=== PATIENT | male | born 1990 | race Caucasian/White ===

== ENCOUNTER 2016-09-15 00:12 | Emergency (ER) | payer MEDICARE, MEDICAID ==
[2016-09-15] MEDS ORDERED: Ibuprofen TAB* 400 MG PO ONE (00:52)
[2016-09-15] MEDS ORDERED: Tetan/Diph/Pertus SYR(Tdap)* 0.5 ML SYR(BOOSTRIX) use SYR IM ONE (01:04)
--- NOTE | 2016-09-15 01:08 | ED ---
Upper Extremity Pain - HPI Summary HPI Summary: Patient presents with right hand pain after punching a wall in a bathroom. He has a small cut to his right middle finger, and is able to move all digits of the hand. He is not sure if his tetanus is up to date. He denies N/T. He has mild swelling and bruising. He is right handed. - History of Current Complaint Chief Complaint: EDExtremityUpper Stated Complaint: RT HAND LAC Time Seen by Provider: 09/15/16 00:22 Hx Obtained From: Patient Mechanism Of Injury: Direct Blow Onset/Duration: Started Hours Ago Timing: Constant Severity Initially: Severe Severity Currently: Severe Pain Location: Hand Character: Sharp, Aching, Stiffness Aggravating Factor(s): Movement Alleviating Factor(s): Nothing Associated Signs & Symptoms: Positive: Swelling Related History: Dominant Hand Right - Allergies/Home Medications Allergies/Adverse Reactions: Allergies Allergy/AdvReac Type Severity Reaction Status Date / Time No Known Allergies Allergy Verified 09/15/16 00:21 PMH/Surg Hx/FS Hx/Imm Hx Endocrine/Hematology History: Denies: Hx Diabetes Cardiovascular History: Denies: Hx Hypertension, Hx Pacemaker/ICD GI History: Denies: Hx Cirrhosis History: Denies: Hx Renal Disease Sensory History: Denies: Hx Hearing Aid Psychiatric History: Reports: Hx Inpatient Treatment - 2003 [facility] [place] [facility], Hx of Violent Episodes Against Others - 2003, Hx Substance Abuse - iv opiates Denies: Hx Panic Disorder - Surgical History Surgery Procedure, Year, and Place: one wisdom tooth removed Hx Anesthesia Reactions: No - Immunization History Date of Tetanus Vaccine: unk Infectious Disease History: Yes Infectious Disease History: Reports: Hx Hepatitis - HEP C Denies: History Other Infectious Disease, Traveled Outside the [place] in Last 30 Days - Family History Known Family History: Positive: None - Social History Occupation: Unemployed Lives: With Family Alcohol Use: None Substance Use Type: Reports: Prescribed Substance Use Comment - Amount & Last Used: last use was Saturday07/23/15, hydrocodone and vicodin, snorts and shoots Smoking Status (MU): Current Every Day Smoker Type: Cigarettes Amount Used/How Often: 1-2ppd Length of Time of Smoking/Using Tobacco: 13yrs Have You Smoked in the Last Year: Yes Cessation Counseling: Patient Advised to Stop Review of Systems Positive: Myalgia, Decreased ROM, Edema Negative: Paresthesia, Numbness All Other Systems Reviewed And Are Negative: Yes Physical Exam Triage Information Reviewed: Yes Vital Signs On Initial Exam: Initial Vitals Temp Pulse Resp BP Pulse Ox 99.1 F 122 20 158/83 98 09/15/16 00:15 09/15/16 00:15 09/15/16 00:15 09/15/16 00:15 09/15/16 00:15 Vital Signs Reviewed: Yes Appearance: Positive: Well-Appearing, Well-Nourished, Pain Distress Skin: Positive: Warm, Skin Color Reflects Adequate Perfusion, Dry, Soft Head/Face: Positive: Normal Head/Face Inspection Eyes: Positive: EOMI, BOUBACAR, Conjunctiva Clear ENT: Positive: Hearing grossly normal Respiratory/Lung Sounds: Positive: Breath Sounds Present Cardiovascular: Positive: RRR Musculoskeletal: Positive: Limited @ - Able to form a loose fist with movement of all digits, but with pain, Pain @, Edema Right Neurological: Positive: Sensory/Motor Intact, Alert, Oriented to Person Place, Time, NV Bundle Intact Distally Psychiatric: Positive: Affect/Mood Appropriate AVPU Assessment: Alert - Meño Coma Scale Coma Scale Total: 15 Procedures - Splinting Location: right forth digit Pre-Made Type: metal - metal foam splint Splint: volar Pre-Proc Neuro Vasc Exam: normal Post-Proc Neuro Vasc Exam: normal - Laceration/Wound Repair 1 Location: upper extremity - right 3rd digit dorsum of PIP Description: Linear Anesthesia: Local, 2.0%, Lido Length, Depth and Shape: 1.5 cm long, 3mm wide, 3mm deep Betadine Prep?: No Irrigated w/ Saline (ccs): 200 Laceration/Wound Explored: clean Closure: Single Layer Debridement: minimal Suture Type: Nylon - 4.0 Number of Sutures: 5 Layer Closure?: No Sterile Dressing Applied?: Yes Diagnostics - Vital Signs Vital Signs Temp Pulse Resp BP Pulse Ox 09/15/16 00:15 99.1 F 122 20 158/83 98 - Laboratory Lab Statement: Any lab studies that have been ordered have been reviewed, and results considered in the medical decision making process. - Radiology No standard instances Xray Interpretation: Positive (See Comments) Radiology Interpretation Completed By: ED Physician - right 4th digit proximal phalanx fracture Course/Dx - Diagnoses Differential Diagnosis/HQI/PQRI: Positive: Arthritis, Bursitis, Contusion, Fracture (Closed), Hematoma, Laceration, Strain, Sprain Provider Diagnoses: Finger fracture, right, Laceration of right middle finger Discharge - Discharge Plan Condition: Stable Disposition: HOME Patient Education Materials: Finger Fracture (ED), Finger Laceration (ED), Tetanus (ED) Referrals: Lloyd Horn MD [Medical Doctor] - Lionel Barcenas MD [Primary Care Provider] - Additional Instructions: Keep your dressing clean, dry and in place for the next 24 hours. You may then remove and clean. Pat dry and cover with a clean, dry band-aid if you are going to be in a "dirty" environment, otherwise it can remain open to air. Do not soak the wound in any body of water until the sutures are removed. Elevate the hand above your heart and use Ibuprofen 600mg three times daily with meals for the next 5-7 days to reduce pain and swelling. Keep the splint in place at all times. Follow-up with your primary care provider or return to the emergency department in 10-12 days for suture removal. Call Dr. Horn with orthopedics next week for an appointment for evaluation and fracture care. Return to the emergency department sooner if your symptoms worsen.
[2016-09-15 02:36] VITALS: BP 138/82
--- NOTE | 2016-09-15 07:42 | RAD ---
HISTORY: Trauma, right hand pain COMPARISONS: None VIEWS: 4, Frontal, lateral, and oblique views of the right hand FINDINGS: BONE DENSITY: Normal. BONES: There is a minimally displaced fracture of the base of the middle phalanx of the fourth digit with articular extension to the PIP joint. JOINTS: There is no arthropathy. ALIGNMENT: There is no dislocation. SOFT TISSUES: Unremarkable. OTHER FINDINGS: None. IMPRESSION: FRACTURE OF THE BASE OF THE MIDDLE PHALANX OF THE FOURTH DIGIT WITH ARTICULAR EXTENSION
== END 2016-09-15 02:35 | disposition home or self-care (01) ==
LOC: ED 00:12
DX: S62.602B Fracture of unspecified phalanx of right middle finger, initial encounter for open fracture (principal); S61.212A Laceration without foreign body of right middle finger without damage to nail, initial encounter; M79.641 Pain in right hand; W22.01XA Walked into wall, initial encounter; Y93.9 Activity, unspecified; Y92.9 Unspecified place or not applicable; F17.210 Nicotine dependence, cigarettes, uncomplicated
CPT/HCPCS: 90471; 90715; 99282; A9270-GY

== ENCOUNTER 2016-10-01 06:35 | Day surgery (SDC) | payer MEDICARE, MEDICAID ==
--- NOTE | 2016-09-27 08:40 | HP ---
PREOPERATIVE HISTORY AND PHYSICAL: DATE OF ADMISSION/SURGERY: 10/01/16 ATTENDING PHYSICIAN: Dr. Garcia (DICTATED BY KOLBY DAVILA) PROCEDURE: Right ring finger open reduction and internal fixation, proximal interphalangeal joint fracture dislocation, possible tiny-hamate reconstruction. CHIEF COMPLAINT: Right hand pain. HISTORY OF PRESENT ILLNESS: Chandu is a 25-year-old male who presented to the clinic with right hand pain after punching a wall on 09/14/16. The patient was seen in the ER for a wound on his long finger and stitches were placed. He recently reports that a purulent discharge has been coming out of the suture. X - rays were performed in the ER and revealed a displaced fracture of the middle phalanx of the right ring finger. He reports pain in the ring finger that he describes as an ache. He rates it as a 2/10 and it is worse with writing and use of the hand. He also reports limited range of motion. He is taking ibuprofen for pain. He was given a splint in the ER that he has been wearing on his index finger. He has a history of breaking his hand before. He reports purulent discharge from his sutures. He is currently on amoxicillin every day for a tooth abscess. He denies numbness, tingling, fever, chills. PAST MEDICAL HISTORY: Hypertension, HEPATITIS C, drug addiction, and alcoholism. PAST SURGICAL HISTORY: He denies previous surgeries. MEDICATIONS: 1. Gabapentin 600 mg one by mouth 3 times a day. 2. Amoxicillin 500 mg one tablet by mouth daily. ALLERGIES: No known drug allergies. FAMILY HISTORY: Positive for diabetes in maternal grandfather, heart disease and high blood pressure in maternal grandfather. Positive for brain cancer in his sister. SOCIAL HISTORY: He lives alone. He is unemployed. He is a current heavy smoker, smokes 1 pack per day for several years. He exercises regularly. He is right hand dominant. REVIEW OF SYSTEMS: General: Negative for fever, chills, or night sweats. No known anesthesia problems. HEENT: Negative for headache, lightheadedness, or syncopal episodes. Integumentary: Positive for open wound on the right middle finger. Cardiothoracic: Negative for chest pain, palpitations, or edema. Positive for hypertension. Pulmonary: Negative for shortness of breath with exertion, chronic cough, or COPD. GI: Negative for nausea, vomiting, diarrhea , constipation, or GERD. : Negative for nocturia, urinary frequency, urinary urgency, history of UTIs or kidney problems. Musculoskeletal: Positive for current complaint. Neuro: Negative for numbness, tingling, history of seizure , stroke, or epilepsy. Endocrine: Negative for diabetes or thyroid issues. Heme: Negative for easy bruising, anemia, excessive bleeding, history of DVT. Infectious Disease: Negative for history of MRSA. Positive for history of hepatitis C. PHYSICAL EXAMINATION GENERAL: Well-developed, well-nourished 25-year-old male in no acute distress. Alert and oriented x3. Appropriate mood and affect. VITAL SIGNS: Height 71, weight 170. Pulse 82, blood pressure 127/75, temperature 98.4. BMI 23.7. HEENT: Normocephalic, atraumatic. PERRLA. Throat clear. NECK: Supple. PULMONARY: Lungs are clear to auscultation bilaterally. No wheezing, rhonchi, or rales. CARDIO: Regular rate and rhythm. S1, S2. No murmurs, gallops, or rubs. No edema. ABDOMEN: Positive bowel sounds. Soft, nontender. MUSCULOSKELETAL: Right upper extremity erythema and swelling of the wound with intact sutures over the PIP of the third finger. Mild warmth. Tender to palpation. No visible purulent discharge. Range of motion from 5 degrees to 40 degrees. He also has diffuse swelling along the right index finger with tenderness to palpation near the PIP of the right ring finger. Limited range of motion from 5 to 40 degrees. The patient unable to make a full fist. +2 radial pulse, +2 ulnar pulse. Sensation intact to light touch distally. Full range of motion of the wrist. Left upper extremity, skin is intact. Nontender to palpation. No open lesions. Full range of motion of the wrist and hand. +2 radial pulse. Sensation intact to light touch distally. NEURO: Alert and oriented x3. Cranial nerves grossly intact. Sensation intact to light touch. DIAGNOSTIC STUDIES: Multiple view x-rays of the right hand and right ring finger reveal a displaced fracture at the base of the middle phalanx of the right ring finger. The central fragment is impacted and the volar fragment is displaced. ASSESSMENT: Displaced right ring finger dorsal fracture dislocation. PLAN: Chandu is a 25-year-old male who presents to the clinic with right ring finger pain due to a displaced fracture of the medial phalanx of the right ring finger after punching a wall. The fracture is displaced with multiple fragments , therefore, a CT of the ring finger was ordered to evaluate the fracture fragment. The patient is scheduled to undergo a right ring finger open reduction and internal fixation of proximal interphalangeal joint fracture dislocation, possible tiny- hamate reconstruction with Dr. Garcia on 10/01/16. In regards to the middle finger, the stem of the sutures were removed and two were left intact, he should use soapy soaks for 15 minutes twice a day and he was placed on Bactrim. Providence will be used postoperatively for pain management. He will follow up with Dr. Garcia 10 to 14 days postop. KOLBY DAVILA [id number]/[facility] #: [id number] MTDD
[~2016-10-01 06:35] MED LIST: Buffered Lidocaine 1% SYRIN* 3 ML/SYR SYRINGE INTRADERM ONE; Dexamethasone TAB* 4 MG ONE; Dexamethasone TAB* 4 MG PO ONE; Famotidine IV* 10 MG/ML 2 ML (20 mg) IV ONE; Famotidine IV* 10 MG/ML 2 ML (20 mg) ONE; ceFAZolin 2 GM PREMIX(*) 2 GM/50 ML BAG IVPB ONE
[2016-10-01] MEDS ORDERED: Bupivacaine 0.25% SDV* 30 ML ONE (07:23)
[2016-10-01] MEDS ORDERED: Propofol* 10 MG/ML 20 ML BTL IV PUSH ONE (07:26)
[2016-10-01] MEDS ORDERED: Ketorolac INJ* 30 MG/ML 1 ML VIAL ONE (07:26)
[2016-10-01] MEDS ORDERED: Lidocaine 2% PF * 5 ML VIAL ONE (07:26)
[2016-10-01] MEDS ORDERED: Midazolam* 1 MG/ML 2 ML VIAL (2 MG) ONE (07:27)
[2016-10-01] MEDS ORDERED: fentaNYL* 50 MCG/ML 2 ML VIAL (100 MCG VIAL) ONE (07:27)
[2016-10-01] MEDS ORDERED: Ondansetron INJ* 2 MG/ML VIAL ONE (08:38)
[2016-10-01] MEDS ORDERED: PROCHLORPERAZINE INJ 5 MG/ML 2 ML VIAL IV PRN (08:48)
[2016-10-01] MEDS ORDERED: Scopolamine 1.5 mg* PATCH TRANSDERM PRN (08:48)
[2016-10-01] MEDS ORDERED: HYDROcodone/ACETAMIN 5-325 MG* 1 TAB PO PRN (08:48)
[2016-10-01 11:25] VITALS: BP 140/89
--- NOTE | 2016-10-02 03:48 | OP ---
DATE OF OPERATION: 10/01/16 - [facility] DATE OF : 86 SURGEON: Long Garcia MD RN RADIATION: KOLBY Light. An energy assistant was needed throughout all portions of the procedure for positioning of the arm intraoperatively and retraction. ANESTHESIOLOGIST: Dr. Uri Em. ANESTHESIA: General, digital block. PRE-OP DIAGNOSIS: Right ring finger dorsal fracture, right ring finger proximal interphalangeal joint dorsal fracture dislocation. POST-OP DIAGNOSIS: Right ring finger dorsal fracture, right ring finger proximal interphalangeal joint dorsal fracture dislocation. OPERATIVE PROCEDURE: Open reduction internal fixation, right middle phalanx articular base. INDICATIONS: Chandu is a 25-year-old male who, on 09/15/16, sustained the aforementioned injury when he was punching something. He was seen in the Urgent Care and splinted and sent for followup. I saw him in the office and given his history of active IV drug use and high concern for infection, I talked to him about performing either an open reduction internal fixation or tiny-hamate reconstruction of the joint. I did not feel like a dynamic external fixator would be a good procedure for him given his propensity for infection. He had had a wound on the dorsum of the adjacent middle finger that I treated with soaks and Bactrim and it healed nicely. He has also had a recent dental abscess that necessitated tooth extraction and the infection there has completely cleared up as well. We talked about risks and benefits including the risk of significant stiffness, risk of posttraumatic arthrosis, pain, and hardware failure amongst many others. He elected to proceed with surgery. ESTIMATED BLOOD LOSS: 5 mL. COMPLICATIONS: None. FINDINGS: Large centrally impacted fragment as expected. There was also an adjacent centrally impacted rim fragment that needed to be elevated as well. The volar rim fragment did have a small split that was nondisplaced in it as well. DESCRIPTION OF PROCEDURE: Chandu was seen in the preoperative holding area. The correct site, side, and procedure were identified. We came back to the operating room where the arm was prepped and draped using a Betadine scrub in the usual fashion. We then had a formal time-out and I placed a digital block using 0.25% Marcaine without epinephrine. I began by making a mid axial incision along the ulnar aspect of the right ring finger, centered over the proximal inter-phalangeal joint. The flap was raised full thickness off the tendon sheath. The ulnar neurovascular bundle was identified and protected. The flap was retracted radially. I then went ahead and excised the A3 césar to expose the flexor tendons. The flexor tendons were retracted using a Ragnell and I incised the volar plate just proximal to its insertion on to the middle phalanx rim fragment. The volar plate then recoiled proximally and I went ahead and released some of the collateral ligaments on either side at their origin. I then passed a Adger drain around the tendons and retracted them radially as I opened the proximal interphalangeal joint. Once I had opened up the joint, I could clearly visualize the multiple articular fragments. The centrally impacted fragment was quite large. There was another fragment just adjacent to that had to be elevated as well. I used the microcurette and the pickups to debride the soft callus that had been forming. I then used the dental pick and the smallest osteotome I had to go ahead and mobilize those fragments. The volar rim fragment was booked open while I elevated out the centrally impacted fragment. Once I had this backup into the position that I desired and anatomically reduced , I placed a 0.6 mm K-wire across the rim fragment and the central fragment to hold them in place. Once that stabilized, I used the dental pick and the osteotome to elevate the other impacted fragment. It was just adjacent to this back up to the anatomic position. I tentatively held this in place. I then closed down the volar rim and central fragments back to the intact dorsal articular surface. Once I had this anatomically reduced, I went ahead and had my energy assistant advance the 0.6 mm K-wire out the dorsal cortical surface. This held the reduction provisionally adequately. Once I had this held in place, I went ahead and placed one 1.0 mm screw of Synthes variable angle handset in compression type fashion. This performed excellent compression. This was an 8- mm screw, having measured off the drill bit. I then placed a second screw adjacent to that on the other side of the split of the volar rim fragment. I was very pleased with the articular reduction. I checked the fluoroscopy and the screws looked short, so at this point, I back opened the joint and replaced the 8 mm screw with 10 mm screw and the 9 mm screw with 11 mm screw sequentially. Again, there was excellent compression across the articular surface. I checked the fluoroscopic imaging and screw lengths looked much improved. At this point, I wanted to reinforce my fixation until I took a 18- gauge needle and used this to shuttle a 26-gauge stainless steel wire circumferentially in cerclage type fashion around the base of the middle phalanx. This was tensioned. I checked the fluoroscopy and I thought I was a little bit too far proximal and adjacent to the joint surface dorsally and so I went ahead and released that first wire and I passed a second wire a little bit more distal on the middle phalanx dorsal aspect. This was then wrapped again in cerclage type fashion and tensioned. I then went ahead and clipped the end and tapped the tails of the wire down into the soft tissue just adjacent to the middle phalanx away from the neurovascular bundle and away from the tendons. I reduced the joint and I checked it fluoroscopically. I liked the position of the wire much better now. At this point, I went ahead and irrigated out the wound copiously. The joint was again reduced. The tendons were let back into place. I then used Ragnell retractor to retract the tendons while I used some 4 -0 Ethibond suture to repair the volar plate to the volar plate stump distally and to the collateral ligament on either side. I then irrigated out the wound and closed the skin with some 5-0 nylon simple interrupted sutures taking care to not snag the neurovascular bundle. The final fluoroscopic images had been obtained. I dressed the wound with Xeroform, 4x4's, sterile Webril, and an ulnar gutter splint grabbing the middle ring and small finger was applied. The tourniquet was deflated. The finger pinked up immediately. Please note that the arm had been exsanguinated and the tourniquet inflated to 250 mmHg prior to making the skin incision. Total tourniquet time was a little over 2 hours. The patient was then awoken up and taken to the recovery room in stable condition. POSTOPERATIVE PLAN: I am going to continue him on 5 more days of Bactrim given his recent infectious issues. I am going to see him back this Saturday and I will get him send over to the therapist to have the therapist make him a splint to start some early motion. [id number]/[facility] #: [id number] SWAPNIL
--- NOTE | 2016-10-02 16:25 | RAD ---
INDICATION: ORIF intra-articular fracture base of fourth middle phalanx. COMPARISON: September 26, 2016 TECHNIQUE: 1 minute 30 seconds fluoroscopy. FINDINGS: Spot images document placement of 2 screws traversing the volar base avulsion fracture at the middle phalanx as well as a cerclage wire. Resulting anatomic alignment. IMPRESSION: Procedural fluoroscopy. CPT II Codes: 6045F
[2016-10-04] MEDS ORDERED: Scopolomine PATCH Remove* 1 NOTE MISC PATCH OFF ONE (08:49)
== END 2016-10-01 11:22 | disposition home or self-care (01) ==
LOC: OREAST 06:35
PROVIDERS: ATTEND Orthopaedic Surgery Hand Surgery
DX: S62.614A Displaced fracture of proximal phalanx of right ring finger, initial encounter for closed fracture (principal); W22.8XXA Striking against or struck by other objects, initial encounter; Y92.9 Unspecified place or not applicable; Z72.0 Tobacco use; B19.20 Unspecified viral hepatitis C without hepatic coma
CPT/HCPCS: 76000; A9270-GY; C1713; C1776; J0690; J1885; J2250; J2405; J2704; J3010

== ENCOUNTER 2016-11-03 23:24 | Emergency (ER) | payer MEDICARE, MEDICAID ==
[2016-11-03 23:37] VITALS: BP 134/80
[2016-11-03] MEDS ORDERED: Cyclobenzaprine TAB* 10 MG PO ONE (23:39)
[2016-11-03] MEDS ORDERED: Ketorolac INJ* 60 MG/2 ML VIAL IM ONE (23:39)
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
== END 2016-11-04 00:55 | disposition home or self-care (01) ==
LOC: ED 23:24
DX: M54.5 Low back pain (principal); G25.81 Restless legs syndrome; Z86.19 Personal history of other infectious and parasitic diseases; F17.210 Nicotine dependence, cigarettes, uncomplicated
CPT/HCPCS: 96372; 99282; A9270-GY; J1885

== ENCOUNTER 2017-01-06 12:35 | Emergency (ER) | payer MEDICARE, MEDICAID ==
[2017-01-06] MEDS ORDERED: Clindamycin 900 MG IVPREMIX(* 900 MG/50 ML SDV IV ONE (13:32)
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
[2017-01-06 14:23] LABS: Hematocrit 41 % (42-52); Hemoglobin 13.4 g/dl (14.0-18.0); Mean Corpuscular HGB Conc 33 g/dl (31-36); Mean Corpuscular Hemoglobin 29 pg (27-31); Mean Corpuscular Volume 88 fL (80-94); Mean Platelet Volume 8 um3 (7.4-10.4); Red Blood Count 4.61 10^6/ul (4.0-5.4); Red Cell Distribution Width 17 % (10.5-15)
[2017-01-06 14:39] LABS: Albumin 4.5 g/dL (3.2-5.2); Calcium 9.7 mg/dL (8.6-10.3); EGFR African American 132.6 (>60); EGFR Non-African American 103.1 (>60); Potassium 4.1 mmol/L (3.5-5.0); Total Bilirubin 0.4 mg/dL (0.2-1.0)
[2017-01-06 15:08] LABS: BUN/Creatinine Ratio 10.2 (8-20)
[2017-01-06 15:10] LABS: Total Protein 8.5 g/dL (6.4-8.9)
[2017-01-06 15:33] VITALS: BP 131/86
--- NOTE | 2017-01-08 11:55 | PN ---
Progress Note - Progress Note Date of Service: 01/06/17 Note: Patient treated for an abscess that was I&D with clindamycin. final culture results show MRSA positive. patient placed on clindamycin which MRSA is susceptible to. no further action needed at this time.
--- NOTE | 2017-01-09 09:08 | PN ---
Progress Note - Progress Note Date of Service: 01/09/17 Note: Preliminary blood culture grew gram neg bacillli. patient placed on bactrim will wait for final culture for sensitivity.
--- NOTE | 2017-01-09 09:17 | PN ---
Progress Note - Progress Note Date of Service: 01/09/17 Note: Patient wound culture sensitive to clindamycin no further action needed.
== END 2017-01-06 15:30 | disposition home or self-care (01) ==
LOC: ED 12:35
DX: L02.413 Cutaneous abscess of right upper limb (principal); B95.62 Methicillin resistant Staphylococcus aureus infection as the cause of diseases classified elsewhere; F14.90 Cocaine use, unspecified, uncomplicated; F11.90 Opioid use, unspecified, uncomplicated; F17.210 Nicotine dependence, cigarettes, uncomplicated
CPT/HCPCS: 10160; 36415; 80053; 85025; 87040; 87070; 87077; 87184; 87186; 87205; 87640; 87641; 96374; 99283

== ENCOUNTER 2017-02-12 09:52 | Emergency (ER) | payer MEDICARE, MEDICAID ==
--- NOTE | 2017-02-12 10:34 | RAD ---
INDICATION: Pain and swelling head of fourth metacarpal following punching injury. Previous fracture in September 2016 with surgery in October 2016. COMPARISON: October 12, 2016 TECHNIQUE: AP, lateral, and oblique views RIGHT hand. REPORT: No evidence for component failure or loosening with regard to the internal fixation hardware at the base of the fourth middle phalanx. No persistent conspicuous fracture plane at the fourth middle phalanx. The fourth finger is held with flexion at the PIP joint. Negative for dislocation. Acute fracture at the distal metaphysis of the fourth metacarpal with mild apex dorsal ulnar angulation. Overlying soft tissue swelling. No additional fracture evident. IMPRESSION: 1. Acute fracture at the distal metaphysis of the fourth metacarpal with mild apex dorsal ulnar angulation. 2. The fourth finger is held with flexion at the PIP joint. Negative for dislocation. 3. Healed fracture at the base of the fourth middle phalanx and stable appearance of the associated internal fixation hardware.
[2017-02-12] MEDS ORDERED: Ketorolac INJ* 60 MG/2 ML VIAL IM ONE (12:18)
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
[2017-02-12 12:46] VITALS: BP 116/84
== END 2017-02-12 12:44 | disposition home or self-care (01) ==
LOC: ED 09:52
DX: S62.304A Unspecified fracture of fourth metacarpal bone, right hand, initial encounter for closed fracture (principal); M79.641 Pain in right hand; W22.01XA Walked into wall, initial encounter; Y93.9 Activity, unspecified; Y92.9 Unspecified place or not applicable; F17.210 Nicotine dependence, cigarettes, uncomplicated
CPT/HCPCS: 96372; 99282; J1885

== ENCOUNTER 2017-03-11 14:07 | Day surgery (SDC) | payer MEDICARE, MEDICAID ==
[~2017-03-11 14:07] MED LIST changes: +Buffered Lidocaine 0.9% SYRIN* 5 ML/SYR SYRINGE INTRADERM ONE; -Buffered Lidocaine 1% SYRIN* 3 ML/SYR SYRINGE INTRADERM ONE; -Dexamethasone TAB* 4 MG ONE; -Dexamethasone TAB* 4 MG PO ONE; -Famotidine IV* 10 MG/ML 2 ML (20 mg) IV ONE; -Famotidine IV* 10 MG/ML 2 ML (20 mg) ONE; -ceFAZolin 2 GM PREMIX(*) 2 GM/50 ML BAG IVPB ONE
[2017-03-11] MEDS ORDERED: ceFAZolin 2 GM PREMIX (*) 50 ML IVPB ONE (14:20)
[2017-03-11] MEDS ORDERED: Buffered Lidocaine 0.9% SYRIN* 5 ML/SYR SYRINGE ONE (14:20)
[2017-03-11] MEDS ORDERED: fentaNYL* 50 MCG/ML 2 ML VIAL (100 MCG VIAL) ONE (15:39)
[2017-03-11] MEDS ORDERED: Propofol* 10 MG/ML 20 ML BTL IV PUSH ONE (15:50)
[2017-03-11] MEDS ORDERED: Lidocaine 2% PF * 5 ML VIAL ONE (15:50)
[2017-03-11] MEDS ORDERED: Bupivacaine 0.25% SDV* 30 ML ONE (16:00)
[2017-03-11] MEDS ORDERED: fentaNYL* 50 MCG/ML 2 ML VIAL (100 MCG VIAL) IV PRN (16:03)
[2017-03-11] MEDS ORDERED: Ketorolac INJ* 30 MG/ML 1 ML VIAL IV PRN (16:03)
[2017-03-11] MEDS ORDERED: Ketorolac INJ* 30 MG/ML 1 ML VIAL ONE (17:12)
[2017-03-11 17:56] VITALS: BP 132/89
--- NOTE | 2017-03-12 04:38 | OP ---
DATE OF OPERATION: 03/11/17 [facility] DATE OF : 86 SURGEON: Long Garcia MD NIGHT CLERK AUDITOR: KOLBY Castellanos. An facilities assistant was needed to aid in positioning of the arm and in placement of the pins and holding the reduction. ANESTHESIOLOGIST: Dr. Prasad. ANESTHESIA: General. PRE-OP DIAGNOSIS: Right subacute displaced fourth metacarpal neck fracture. POST-OP DIAGNOSIS: Right subacute displaced fourth metacarpal neck fracture. OPERATIVE PROCEDURE: Closed reduction and percutaneous pinning of the right fourth metacarpal neck fracture. INDICATIONS: Chandu is 26 years old. He is a patient to my previously done open reduction and internal fixation of right ring finger PIP dorsal fracture dislocation. He has some problems with drug dependency. He was lost to followup after his first 1 or 2 postop visits. I called him and we really tried to get him back in, but we could never get him back in. Ultimately, he finally came back in when he had an incident and he fractured his right fourth metacarpal neck. It was just slightly displaced and stable and so, I put him in a cast. Unfortunately, when he came back 3 weeks later the fracture had displaced and was now angulated significantly. I had talked to him about treatment options to include just letting it heal in the position where it lies and I told him that the hand would probably function reasonably well. I have had a couple of patients who developed dorsal pain, but ultimately he really wanted it realigned and fixed. I thought that was reasonable given he is young and very active. He has been working on stretching out the PIP joint and he has actually done quite well in the last several weeks and has regained quite a bit of extension. I talked to him about risk of pin tract infection necessitating antibiotics or pin removal, risk of loss of fixation, malreduction , or other complications including tendon adhesions or tendon injury. He had wanted to proceed. ESTIMATED BLOOD LOSS: 2 mL. COMPLICATIONS: None. FINDINGS: As expected. DESCRIPTION OF PROCEDURE: Chandu was seen in the preoperative holding area. The correct side, site, and procedure were identified. We came back to the operating room. The arm was prescrubbed and prepped and draped in the usual fashion. A time-out was performed. I began by exsanguinating the arm with the Esmarch and the tourniquet was inflated to 250 mmHg. I then made a less than 1 cm incision over the dorsal ulnar aspect of the bone. Dissection was carried down and the knife was used to longitudinally incise the dorsal periosteum over the fracture. I then introduced a small osteotome into the fracture site and mobilized the fracture enough that it could be close reduced. Once I had the fracture mobilized, I went ahead and placed 1 K-wire from distal ulna starting a bit dorsal and send this down retrograde to the subchondral bone. I then placed another K-wire from distal radial exiting out the proximal ulna. I then thought my first try was a bit dorsal on it start point, so I decided to add a second 0.045 K-wire from distal ulnar and exiting out proximal and radial to the fracture site. Everything was looking nice. At this point, I got some final fluoroscopic imaging. I went ahead and irrigated out the one small wound and closed it with a single 4-0 nylon suture. The pins were bent and clipped. They were dressed with Xeroform, 4x4's, sterile Webril, and an ulnar gutter splint was applied. Tourniquet was deflated. Total tourniquet time was just right around 30 minutes. He was then woken up and taken to the recovery room in stable condition. [id number]/[facility] #: [id number] SWAPNIL
--- NOTE | 2017-03-12 07:37 | RAD ---
INDICATION: Right fourth metacarpal fracture, S 62.334A COMPARISONS: March 08, 2017 TECHNIQUE: Fluoroscopy was provided for a surgical procedure. Total fluoroscopy time is: 56.4 seconds FINDINGS: Spot images demonstrate percutaneous fixation of the fourth metacarpal IMPRESSION: FLUOROSCOPY WAS PROVIDED FOR A SURGICAL PROCEDURE CPT II Codes: 6045F
== END 2017-03-11 17:58 | disposition home or self-care (01) ==
LOC: OR 14:07
PROVIDERS: ATTEND Orthopaedic Surgery Hand Surgery
DX: S62.334 Displaced fracture of neck of fourth metacarpal bone, right hand (principal); F17.210 Nicotine dependence, cigarettes, uncomplicated; B19.20 Unspecified viral hepatitis C without hepatic coma; W22.8XXS Striking against or struck by other objects, sequela; Y92.9 Unspecified place or not applicable
CPT/HCPCS: 76000; C1776; J0690; J1885; J2704; J3010

== ENCOUNTER 2017-04-15 14:29 | Emergency (ER) | payer MEDICARE, MEDICAID ==
[2017-04-15] MEDS ORDERED: Albuterol/Ipratropium NEB.SOL* Albuterol 2.5 MG/Ipratropium 0.5 MG 3 ML INH ONE (17:44)
--- NOTE | 2017-04-15 17:44 | ED ---
Throat Pain/Nasal Congestion - HPI Summary HPI Summary: 26 male presents to ED with complaints of throat pain, left ear pain, nasal congestion and cough that has been on going for the past 3-4 days. Patient states he feels his symptoms are worsening. Admits to feeling feverish but no known fever/chills. Denies difficulty breathing and chest pain. Denies nausea/ vomiting. No know sick contacts. Does smoke cigarettes. Admits to productive cough yellow/green and mucus like. No other complaints. - History of Current Complaint Chief Complaint: EDGeneral Time Seen by Provider: 04/15/17 16:13 Hx Obtained From: Patient Onset/Duration: Sudden Onset, Lasting Days, Still Present, Worse Since Severity: Mild Associated Signs And Symptoms: Positive: Dysphagia Cough: Productive - Epiglottits Risk Factors Epiglottis Risk Factors: Negative - Allergies/Home Medications Allergies/Adverse Reactions: Allergies Allergy/AdvReac Type Severity Reaction Status Date / Time No Known Allergies Allergy Verified 03/11/17 14:32 PMH/Surg Hx/FS Hx/Imm Hx Endocrine/Hematology History: Denies: Hx Diabetes Cardiovascular History: Denies: Hx Hypertension, Hx Pacemaker/ICD, Other Cardiovascular Problems/ Disorders Respiratory History: Denies: Other Respiratory Problems/Disorders GI History: Denies: Hx Cirrhosis, Other GI Disorders History: Denies: Hx Renal Disease Musculoskeletal History: Reports: Hx Arthritis - LOW BACK, Hx Back Problems, Other Musculoskeletal History - REPORTS MISSING A DISC IN LOWER BACK Sensory History: Denies: Hx Contacts or Glasses, Hx Hearing Aid Opthamlomology History: Denies: Hx Contacts or Glasses Neurological History: Reports: Hx Migraine Denies: Other Neuro Impairments/Disorders Psychiatric History: Reports: Hx Inpatient Treatment - 2003 [facility], Hx of Violent Episodes Against Others - 2003, Hx Substance Abuse - iv opiates Denies: Hx Panic Disorder - Surgical History Surgery Procedure, Year, and Place: SINGLE WISDOM TOOTH EXTRACTION IN DENTAL OFFICE. 10/01/16 Rt RING FINGER - FX- SCREWS & WIRE Hx Anesthesia Reactions: No - Immunization History Date of Tetanus Vaccine: unk Immunizations Up to Date: Yes Infectious Disease History: No Infectious Disease History: Reports: Hx Hepatitis - HEP C Denies: History Other Infectious Disease, Traveled Outside the [place] in Last 30 Days - Family History Known Family History: Positive: None Negative: Cardiac Disease, Hypertension - Social History Alcohol Use: Daily Alcohol Amount: 3-4+ PER DAY Substance Use Type: Reports: Cocaine, Marijuana, Prescribed Substance Use Comment - Amount & Last Used: occasional cocaine in the past, addicted to pain meds in the past, raúl Smoking Status (MU): Current Every Day Smoker Type: Cigarettes Amount Used/How Often: 1 - 2 PPD Length of Time of Smoking/Using Tobacco: 13yrs Have You Smoked in the Last Year: Yes Review of Systems Positive: Fever - subjective, Chills Positive: Sore Throat, Ear Ache, Nasal Discharge Cardiovascular: Negative Positive: Cough Gastrointestinal: Negative All Other Systems Reviewed And Are Negative: Yes Physical Exam Triage Information Reviewed: Yes Vital Signs On Initial Exam: Initial Vitals Temp Pulse Resp BP Pulse Ox 98.2 F 104 20 126/82 100 04/15/17 15:13 04/15/17 15:13 04/15/17 15:13 04/15/17 15:13 04/15/17 15:13 Vital Signs Reviewed: Yes Appearance: Positive: Well-Appearing, No Pain Distress, Well-Nourished Skin: Positive: Warm, Skin Color Reflects Adequate Perfusion. Negative: Dry, Cold, Cyanosis @, Pale, Erythema @ Head/Face: Positive: Normal Head/Face Inspection Eyes: Positive: Conjunctiva Clear ENT: Positive: Hearing grossly normal, Pharyngeal erythema, Nasal congestion, Nasal drainage, TM bulging, TM dull, TM red - left, Tonsillar swelling, Sinus tenderness, Uvula midline. Negative: Tonsillar exudate, Trismus, Muffled voice Dental: Negative: Percussion Tenderness @, Cervical Lymphadenopathy Neck: Positive: Supple, Nontender, No Lymphadenopathy Respiratory/Lung Sounds: Positive: Clear to Auscultation, Breath Sounds Present , Wheezes - diffuse. Negative: Rales, Rhonchi Cardiovascular: Positive: Normal, RRR, Pulses are Symmetrical in both Upper and Lower Extremities. Negative: Murmur, Rub Abdomen Description: Positive: Nontender, Soft Bowel Sounds: Positive: Present Musculoskeletal: Positive: Normal, Strength/ROM Intact Neurological: Positive: Normal, Sensory/Motor Intact, Alert, Oriented to Person Place, Time - [place] Coma Scale Coma Scale Total: 15 Diagnostics - Vital Signs Vital Signs Temp Pulse Resp BP Pulse Ox 04/15/17 15:13 98.2 F 104 20 126/82 100 - Laboratory Lab Statement: Any lab studies that have been ordered have been reviewed, and results considered in the medical decision making process. Re-Evaluation - Re-Evaluation First Eval Re-Evaluation Time: 18:10 Change: Improved - wheezing improved after duoneb. discussed treatment plan. understands and agrees EENT Course/Dx - Course Course Of Treatment: duoneb administered. rapid strep obtained and negative. appears to be suffering from URI and left otitis media. Will treat with amox, mucinex, claritin. and chloraseptic spray. Follow up with PCP. aware of worsening signs and symtpoms. no concern for other etiology at this time such as pneumonia or other respiratory tract etiology. - Differential Diagnoses Differential Diagnoses: Otitis Externa, Otitis Media, Pharyngitis, URI/ Bronchitis - Diagnoses Provider Diagnoses: Upper respiratory infection, Otitis media, left Discharge - Discharge Plan Condition: Stable Disposition: HOME Prescriptions: Amoxicillin PO (*) [Amoxicillin 500 MG CAP*] 500 mg PO Q12H #20 cap Fluticasone NASAL SPRAY 50MCG* [Flonase NASAL SPRAY 50MCG*] 2 spray BOTH NARES DAILY #1 btl Loratadine [Claritin 10 MG CAP] 10 mg PO DAILY #10 cap Pseudoephedrine-Guaifenesin [Mucinex D 60-600 mg] 1 tab PO DAILY #10 tab Patient Education Materials: Otitis Media (ED), Upper Respiratory Infection (ED ) Referrals: Kenji Garg MD [Primary Care Provider] - Additional Instructions: Take prescribed medication as directed. Recommend obtaining chloraseptic spray over the counter. Gargle with salt water. Ibuprofen as needed for pain. Get plenty of rest and drink plenty of fluids. Any new or worsening signs or symptoms please seek medical attention immediately.
[2017-04-15 19:01] VITALS: BP 134/75
== END 2017-04-15 19:02 | disposition home or self-care (01) ==
LOC: ED 14:29
DX: J06.9 Acute upper respiratory infection, unspecified (principal); H66.92 Otitis media, unspecified, left ear; F17.210 Nicotine dependence, cigarettes, uncomplicated
CPT/HCPCS: 87651; 94640; 99282; A9270-GY

== ENCOUNTER 2017-07-01 21:23 | Inpatient (IN) | payer MEDICARE, MEDICAID ==
--- OUTSIDE RECORDS SUMMARY | 2017-07-01 21:41 | XMS REPORT ---
:1990 External Reference #:[id number] Author Organization [facility] Address [address] [facility] [address] [place] [address] Phone [phone] Care Team Providers Name Role Phone Lionel Barcenas MD Primary Care Physician Unavailable Payers Type Date Identification Numbers Payment Provider Subscriber Medicare Primary Effective: Policy Number: Medicare Ishan Go 2015 [id number] PayID: [id number] [address] [place] [address] Medigap Part B Policy Number: [id number] Medicaid Ishan Go PayID: [id number] [address] [place] [address] Medigap Part B Expires: 2014 Policy Number: [id number] Medicaid Ishan Go Group Name: 1 1 [address] PayID: [id number] [place] [address] Problems Date Description Provider Status Onset: 08/24/2014 Tobacco user Lionel Barcenas M.D. Active Onset: 09/07/2014 Disorder of lumbar disc Lionel Barcenas M.D. Active Onset: 09/26/2016 Disp fx of middle phalanx of right Long Garcia MD Active ring finger, init Onset: 02/15/2017 Closed fracture of neck of Long Garcia MD Active metacarpal bone Onset: 08/24/2014 Acute bronchitis Lionel Barcenas M.D. Inactive Inactive: 01/07/2017 Family History Date Family Member(s) Problem(s) Comments General Diabetes General Heart Disease General Hypertension General Cancer Father Hypertension Father Sleep Apnea Mother Thyroid Disease Siblings 3 First Brother Bipolar Disorder Second Brother Depression : (age 1 Year 6 First Sister due to Brain Cancer Months) Maternal Grandfather Hypertension Social History Type Date Description Comments Marital Status Single Lives With Alone Occupation Unemployed Cigarette Use Current Cigarette Smoker 1 Pack Daily ETOH Use 01/07/2017 Occasionally consumes alcohol Recreational Drug Use Current Drug User Smoking Heavy tobacco smoker (more than 10 cigarettes/day) Recreational Drug Use 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 TENS Unit 12/10/ Active For use for M54.5 Aaron 2017 back pain DAVID Fairbanks Cane/Adjustable 12/10/ Active Misc 1units use while M54.5 Aaron /Aluminum/Round 2016 ambulating DAVID Fairbanks Handle Methocarbamol 12/10/ Active Tablets 750mg 90tabs take 1-2 M54.5 Aaron 2017 tablet every DAVID Fairbanks six hours as needed for pain. MDD 8 Gabapentin 11/09/ Active Capsules 300mg 180cap 2 caps three Aaron 2017 s times a day DAVID Fairbanks Lumbar Back 12/09/ Active Misc 1units for daily 756.11 Long Garces/Supportpa 2011 use yaron Melendez/Adjustable N.P. 305.1 Amoxicillin Active Capsules 500mg 4 tablets 1 Unknown hour before dental work Seroquel Active Tablets 200mg 1 tab by Unknown mouth every night at bedtime Tramadol HCL 03/11/2017 - Hx Tablets 50mg 30 1 tablet Long 06/27/2017 ta every 4-6 MD Jose bs hours as needed Bactrim DS 01/11/2017 - Hx Tablets 800-160mg 14 1 by mouth A4 Golden [place] 03/07/2017 ta twice a day graciela Blum 02 M.DStevenson Clindamycin HCL 01/07/2017 - Hx Capsules 150mg 28 four times Kenji 03/21/2017 ca a day by sherita Gregory mouth Raven,FACP Naproxen 12/14/2016 - Hx Tablets 500mg 60 [address] 03/21/2017 ta with food 4. DAVID Fairbanks bs by mouth 5 twice a day as needed Meloxicam 12/10/2016 - Hx Tablets 7.5mg 60 1 -[address] 12/14/2016 ta by mouth 4. DAVID Fairbanks bs once daily 5 as needed with food Tizanidine HCL 11/28/2016 - Hx Capsules 4mg 60 [address] 12/10/2016 ca times a day 4. DAVID Fairbanks ps as needed 5 Baclofen 11/18/2016 - Hx Tablets 10mg 60 take [address] 11/18/2016 ta every 6-8 4. DAVID Fairbanks bs hour as 5 needed Skelaxin 11/16/2016 - Hx Tablets 800mg 60 1 tab by [address] 11/16/2016 ta mouth three 4. DAVID Fairbanks bs times a day 5 as needed pain/muscle spasm Methocarbamol 11/16/2016 - Hx Tablets 750mg 60 take [address] 11/28/2016 ta tablet 4. DAVID Fairbanks bs every six 5 hours as needed for pain. may take second tablet if first not effective. Meloxicam 11/16/2016 - Hx Tablets 7.5mg 30 1 -[address] 12/10/2016 ta by mouth 4. DAVID Fairbanks bs once daily 5 as needed with food Medrol 11/09/2016 - Hx TBPK 4mg 21 as directed [address] 11/15/2016 un on package 4. DAVID Fairbanks it 5 s Baclofen 11/09/2016 - Hx Tablets 10mg 45 take 1/[address] 11/16/2016 ta tab every 8 4. DAVID Fairbanks bs hours as 5 needed for muscle spasm. May increase to a full tablet tid after three days [place] 10/01/2016 - Hx Tablets 5-325mg 30 1 tab by Long 10/11/2016 ta mouth q 4 - MD Jose bs 6 hours as needed pain Bactrim DS 09/26/2016 - Hx Tablets 800-160mg 10 take 1 by S6 Cyr[place] 11/09/2016 ta mouth twice 2. MD Jose bs daily x 5 62 days 4A Hydrochlorothiazide 05/03/2016 - Hx Tablets 25mg 30 1 by mouth [place] 09/24/2016 ta every day DAVID Fairbanks bs Amlodipine Besylate 05/03/2016 - Hx Tablets 2.5mg 30 1 by mouth I1 [place] 09/25/2016 ta every day 0 DAVID Fairbanks bs Quetiapine Fumarate 03/15/2016 - Hx Tablets 25mg 90 three tabs [place] 05/03/2016 ta PO Qhs Magdi, DAVID bs Gabapentin 03/07/2016 - Hx Tablets 600mg 90 1 tab by [place] 11/09/2016 ta mouth three DAVID Fairbanks bs times daily Cyclobenzaprine HCL 03/07/2016 - Hx Tablets 10mg 90 one by [place] 05/03/2016 ta mouth three DAVID Fairbanks bs times a day Venlafaxine HCL 03/07/2016 - Hx Tablets 37.5mg 30 1 by mouth [place] 09/24/2016 ta every day DAVID Fairbanks bs Tobramycin 09/08/2015 - Hx Solution 0.3% 5m 1 drop in Other 03/07/2016 l each eye Ordering every Provider 4hours x 7 days Prednisone 07/19/2015 - Hx Tablets 20mg 60 2 tabs Other 03/07/2016 ta daily Ordering bs Provider Cyclobenzaprine HCL 07/19/2015 - Hx Tablets 10mg 30 one by Other 03/07/2016 ta mouth three Ordering bs times a day Provider as needed spasm Hydrocodone-Acetaminop 07/19/2015 - Hx Tablets 5-325mg 1-2 tabs Unknown hen 03/07/2016 by mouth every 6 hours prn pain Naproxen Sodium 07/19/2015 - Hx Capsules 220mg 30 3 tabs by Other 03/07/2016 ca mouth every Ordering ps 12 hours Provider prn Clindamycin HCL 06/17/2015 - Hx Capsules 300mg 30 1 capsule Tri 03/07/2016 ca by mouth sherita Aguirre three times M.D. a day x's 10 days Tizanidine HCL 09/07/2014 - Hx Capsules 4mg 20 1 by mouth 72 [place] 06/17/2015 ca at bedtime 2. sherita Barcenas 93 M.D. Meloxicam 09/07/2014 - Hx Tablets 15mg 30 once daily 72 [place] 06/17/2015 ta with food 2graciela Tabares 93 M.D. No Active Medications 08/24/2014 - Hx Unknown 08/24/2014 Zithromax Z-Mukul 08/24/2014 - Hx Tablets 250mg 1t 2tab today 46 [place] 09/07/2014 ab and 1tab 6. Pachikara, s daily x 0 M.D. 4days Proair HFA 08/24/2014 - Hx Aerosol 108(90Bas 1u 2 puffs ih 46 [place] 06/17/2015 e) ni every 4 6. Pachikara, mcg/Act ts hours as 0 M.D. needed Prednisone 08/24/2014 - Hx Tablets 10mg 30 5tabx 46 [place] 09/07/2014 ta 2days,4 6. Narinder bs [id number] 0 M.D. [id number], [id number], 1tabxday. Meloxicam 12/10/2011 - Hx Tablets 15mg one daily [place] 12/10/2011 Beena Melendez Lidoderm 12/10/2011 - Hx Patches 5% 30 apply to [place] 08/24/2014 un area of emeterio Melendez pain for 12 N.P. s hours/ day Meloxicam 12/10/2011 - Hx Tablets 15mg 30 one daily [place] 08/24/2014 ta graciela Melendez N.P. Tramadol HCL 12/10/2011 - Hx Tablets 50mg 12 one q6 [place] 08/24/2014 0t hours as ab Al needed for N.P. s pain Zithromax Z-Mukul 04/10/2010 - Hx Tablets 250mg 1t 2tab today 46 [place] 08/24/2014 ab and 1tab 6. Narinder, s daily x 0 M.D. 4days Nicoderm CQ 03/07/2010 - Hx Patches 14mg/24HR 30 once daily 30 [place] 04/10/2010 24HR un 5. Narinder it 1 M.D. s Opana ER 03/01/2010 - Hx Tablets ER 10mg 60 1 po q12hrs 72 [place] 08/24/2014 12HR ta 4. graciela Barcenas 2 M.D. Opana 03/01/2010 - Hx Tablets 10mg 90 q4h prn 72 [place] 08/24/2014 ta 4. graciela Barcenas 2 M.D. Chantix 03/01/2010 - Hx Tablets Starter 1m 30 [place] 03/07/2010 Pack on 5. dora Barcenas 1 Raven Redd 10/17/2009 - Hx Tablets 5-325mg 40 1-2 po q4h Fracisco Callejas 03/01/2010 graciela Marinelli M.D. Clonidine HCL - Hx Tablets 0.1mg 1 by mouth Unknown 05/03/2016 every six hours as needed for withdrawl Quetiapine Fumarate - Hx Tablets 100mg 1 tab daily Unknown 09/24/2016 Suboxone - Hx Film 12-3mg Unknown 09/24/2016 Suboxone - Hx Unknown 06/27/2017 Immunizations CPT Code Status Date Vaccine Lot # [id number] Given 03/07/2010 Influenza Virus 3Yrs & Over [id number] Vital Signs Date Vital Result Comment 06/28/2017 Height 71 inches 5'11" Weight 167.38 lb Heart Rate 84 /min BP Systolic Sitting 128 mmHg BP Diastolic Sitting 80 mmHg Respiratory Rate 14 /min Body Temperature 97.6 F BMI (Body Mass Index) 23.3 kg/m2 04/17/2017 Height 71 inches 5'11" Weight 155.00 lb Heart Rate 74 /min Respiratory Rate 16 /min Body Temperature 98.4 F Pain Level 0 BMI (Body Mass Index) 21.6 kg/m2 04/08/2017 Height 71 inches 5'11" Weight 155.00 lb Heart Rate 89 /min BP Systolic 124 mmHg BP Diastolic 78 mmHg Respiratory Rate 16 /min BMI (Body Mass Index) 21.6 kg/m2 03/27/2017 Height 71 inches 5'11" Weight 155.00 lb Heart Rate 74 /min BP Systolic 132 mmHg BP Diastolic 78 mmHg Body Temperature 96.8 F BMI (Body Mass Index) 21.6 kg/m2 03/22/2017 Height 71 inches 5'11" Weight 151.50 lb Heart Rate 60 /min BP Systolic Sitting 110 mmHg BP Diastolic Sitting 68 mmHg Respiratory Rate 14 /min Body Temperature 97.8 F BMI (Body Mass Index) 21.1 kg/m2 03/08/2017 Height 71 inches 5'11" Weight 155.00 lb Heart Rate 94 /min Respiratory Rate 18 /min Body Temperature 96.9 F BMI (Body Mass Index) 21.6 kg/m2 02/15/2017 Height 71 inches 5'11" Weight 155.00 lb Heart Rate 88 /min Respiratory Rate 16 /min Body Temperature 97.8 F Pain Level 4 BMI (Body Mass Index) 21.6 kg/m2 01/11/2017 Height 71 inches 5'11" Weight 155.00 lb Heart Rate 96 /min BP Systolic 132 mmHg BP Diastolic 86 mmHg Respiratory Rate 18 /min Body Temperature 99.0 F BMI (Body Mass Index) 21.6 kg/m2 01/07/2017 Weight 150.00 lb Heart Rate 84 /min BP Systolic Sitting 140 mmHg BP Diastolic Sitting 82 mmHg Body Temperature 97.5 F O2 % BldC Oximetry 98 % 12/18/2016 Height 71 inches 5'11" Weight 156.50 lb Heart Rate 72 /min BP Systolic Sitting 112 mmHg BP Diastolic Sitting 70 mmHg Respiratory Rate 14 /min Body Temperature 97.2 F BMI (Body Mass Index) 21.8 kg/m2 12/10/2016 Heart Rate 100 /min BP Systolic Sitting 130 mmHg BP Diastolic Sitting 80 mmHg Pain Level 5 lower back O2 % BldC Oximetry 99 % 11/16/2016 Heart Rate 108 /min BP Systolic Sitting 160 mmHg BP Diastolic Sitting 90 mmHg Body Temperature 97.5 F Pain Level 10 O2 % BldC Oximetry 98 % 11/09/2016 Weight 158.25 lb Heart Rate 114 /min BP Systolic 144 mmHg BP Diastolic 72 mmHg Body Temperature 97.8 F O2 % BldC Oximetry 97 % 10/19/2016 Height 71 inches 5'11" Weight 168.00 lb Respiratory Rate 14 /min Body Temperature 97.4 F Pain Level 0 BMI (Body Mass Index) 23.4 kg/m2 10/12/2016 Height 71 inches 5'11" Weight 168.00 lb Respiratory Rate 16 /min Body Temperature 97.9 F Pain Level 0 BMI (Body Mass Index) 23.4 kg/m2 10/05/2016 Height 71 inches 5'11" Weight 170.00 lb Respiratory Rate 16 /min Body Temperature 97.4 F Pain Level 4 BMI (Body Mass Index) 23.7 kg/m2 09/26/2016 Height 71 inches 5'11" Weight 170.00 lb Heart Rate 82 /min BP Systolic 127 mmHg BP Diastolic 75 mmHg Body Temperature 98.4 F BMI (Body Mass Index) 23.7 kg/m2 05/03/2016 Height 71 inches 5'11" Weight 162.00 lb Heart Rate 100 /min BP Systolic 160 mmHg BP Diastolic 82 mmHg O2 % BldC Oximetry 97 % BMI (Body Mass Index) 22.6 kg/m2 03/07/2016 Weight 175.50 lb Heart Rate 109 /min BP Systolic Sitting 136 mmHg BP Diastolic Sitting 86 mmHg Body Temperature 98.1 F O2 % BldC Oximetry 96 % 10/14/2015 Height 71 inches 5'11" Weight 164.00 lb Heart Rate 76 /min BP Systolic Sitting 142 mmHg BP Diastolic Sitting 92 mmHg Respiratory Rate 16 /min Pain Level 4 BMI (Body Mass Index) 22.9 kg/m2 06/17/2015 Height 71 inches 5'11" Weight 164.00 lb Heart Rate 92 /min BP Systolic 138 mmHg BP Diastolic 78 mmHg Body Temperature 98.8 F O2 % BldC Oximetry 100 % BMI (Body Mass Index) 22.9 kg/m2 09/07/2014 Weight 160.00 lb Heart Rate 102 /min BP Systolic Sitting 160 mmHg BP Diastolic Sitting 78 mmHg Body Temperature 97.2 F O2 % BldC Oximetry 98 % 08/24/2014 Height 71 inches 5'11" Weight 153.00 lb Heart Rate 122 /min BP Systolic Sitting 130 mmHg BP Diastolic Sitting 80 mmHg Body Temperature 98.3 F O2 % BldC Oximetry 97 % BMI (Body Mass Index) 21.3 kg/m2 08/09/2010 Weight 147.00 lb Heart Rate 88 /min BP Systolic Sitting 128 mmHg BP Diastolic Sitting 72 mmHg Body Temperature 98.5 F tympanic 04/10/2010 Weight 146.00 lb Heart Rate 64 /min BP Systolic 130 mmHg BP Diastolic 80 mmHg 03/07/2010 Weight 150.00 lb Heart Rate 81 /min BP Systolic Sitting 140 mmHg BP Diastolic Sitting 78 mmHg 03/01/2010 Height 71 inches 5'11" Weight 150.00 lb Heart Rate 75 /min BP Systolic Sitting 150 mmHg BP Diastolic Sitting 88 mmHg BMI (Body Mass Index) 20.9 kg/m2 Results Test Date Test Result H/L Range Note Laboratory test 04/15/2017 Rapid Strep Negative Negative 1 finding Molecular Laboratory test 04/15/2017 Rapid Strep A SEE RESULT BELOW 2 finding Laboratory test 04/08/2017 Hepatitis C Rna [id number] IU/mL Undetected 3 finding Quant Miscellaneous Test See Comment 4 HIV 1/2 AB Evaluation 03/08/2017 HIV 1 2 Antibody Nonreactive Nonreactive 5 Liver Fibrosis Panel 03/08/2017 Fibrosis Score 0.03 Fibrosure Fibrosis Stage F0 Fibrosis Interpretation See Comment 6 Necroinflammat Activity Score 0.06 Necroinflammat Activity Grade A0 Necroinflammat Interpretation See Comment 7 Alpha 2 Macroglobulins, Qn 112 mg/dL 106-279 Haptoglobin 206 mg/dL 43-212 Apolipoprotein A-1 122 mg/dL 94-176 Bilirubin, Total 0.3 mg/dL 0.2-1.2 GGT 17 U/L 3-70 Alt (SGPT) 21 U/L 9-46 Reference Id [id number] Footnote See Comment 8 Hepatitis B Gladys AB 03/08/2017 Hepatitis B Surface AB Nonreactive Nonreactive Titer Hep B Surf AB Level 9.33 mIU/mL <12 9 Laboratory test finding 03/08/2017 Hepatitis C Genotype 1a Undetected 10 Hepatitis B Surface Ag Nonreactive Nonreactive Wound Culture/Sensi 01/06/2017 Wound/Misc SEE RESULT 11, 12 Culture-Gram Stain BELOW Laboratory test 01/06/2017 MRSA/S. aureus Ssti SEE RESULT 11, 13 finding PCR BELOW CBC Auto Diff 01/06/2017 White Blood Count 9.0 10^3/uL 3.5-10.8 Red Blood Count 4.61 10^6/uL 4.0-5.4 Hemoglobin 13.4 g/dL Low 14.0-18.0 Hematocrit 41 % Low 42-52 Mean Corpuscular Volume 88 fL 80-94 Mean Corpuscular Hemoglobin 29 pg 27-31 Mean Corpuscular HGB Conc 33 g/dL 31-36 Red Cell Distribution Width 17 % High 10.5-15 Platelet Count 324 10^3/uL 150-450 Mean Platelet Volume 8 um3 7.4-10.4 Abs Neutrophils 6.9 10^3/uL 1.5-7.7 Abs Lymphocytes 1.5 10^3/uL 1.0-4.8 Abs Monocytes 0.5 10^3/uL 0-0.8 Abs Eosinophils 0 10^3/uL 0-0.6 Abs Basophils 0.2 10^3/uL 0-0.2 Abs Nucleated RBC 0 10^3/uL Granulocyte % 76.2 % 38-83 Lymphocyte % 16.4 % Low 25-47 Monocyte % 5.1 % 1-9 Eosinophil % 0.2 % 0-6 Basophil % 2.1 % High 0-2 Nucleated Red Blood Cells % 0 Comp Metabolic Panel 01/06/2017 Sodium 136 mmol/L 133-145 Potassium 4.1 mmol/L 3.5-5.0 Chloride 102 mmol/L 101-111 Co2 Carbon Dioxide 29 mmol/L 22-32 Anion Gap 5 mmol/L 2-11 Glucose 105 mg/dL High 70-100 Creatinine 0.88 mg/dL 0.67-1.17 Calcium 9.7 mg/dL 8.6-10.3 Total Protein 8.5 g/dL 6.4-8.9 14 Albumin 4.5 g/dL 3.2-5.2 Globulin 4.0 g/dL 2-4 15 Albumin/Globulin Ratio 1.1 1-3 16 Total Bilirubin 0.40 mg/dL 0.2-1.0 Alkaline Phosphatase 85 U/L 34-104 Alt 19 U/L 7-52 Ast 17 U/L 13-39 Egfr Non- 103.1 >60 Egfr 132.6 >60 17 Blood Urea Nitrogen 9 mg/dL 6-24 BUN/Creatinine Ratio 10.2 8-20 Laboratory test finding 01/06/2017 Blood Culture SEE RESULT BELOW 18 Liver Function Panel 11/23/2016 Total Protein 6.6 g/dL 6.4-8.9 Albumin 3.6 g/dL 3.2-5.2 Globulin 3.0 g/dL 2-4 Albumin/Globulin Ratio 1.2 1-3 Total Bilirubin 0.50 mg/dL 0.2-1.0 Direct Bilirubin 0.10 mg/dL 0.03-0.18 Indirect Bilirubin 0.4 mg/dL 0.3-1.0 Alkaline Phosphatase 60 U/L 34-104 Alt 28 U/L 7-52 Ast 38 U/L 13-39 Laboratory test 11/23/2016 Hepatitis C Antibody High Reactive Nonreactive 19 finding Hepatitis C Rna Quant [id number] IU/mL Undetected 20 Laboratory test finding 05/22/2016 TSH (Thyroid Stim Horm) 0.65 mcIU/mL 0.34-5.60 Hepatitis C Antibody High Reactive Nonreactive 21 Hepatitis C Rna Quant [id number] IU/mL Undetected 22 Comp Metabolic Panel 05/22/2016 Sodium 133 mmol/L 133-145 Potassium 4.3 mmol/L 3.5-5.0 Chloride 97 mmol/L Low 101-111 Co2 Carbon Dioxide 31 mmol/L 22-32 Anion Gap 5 mmol/L 2-11 Glucose 115 mg/dL High 70-100 Blood Urea Nitrogen 8 mg/dL 6-24 Creatinine 0.78 mg/dL 0.67-1.17 BUN/Creatinine Ratio 10.3 8-20 Calcium 9.9 mg/dL 8.6-10.3 Total Protein 8.2 g/dL 6.4-8.9 Albumin 4.8 g/dL 3.2-5.2 Globulin 3.4 g/dL 2-4 Albumin/Globulin Ratio 1.4 1-3 Total Bilirubin 0.50 mg/dL 0.2-1.0 Alkaline Phosphatase 78 U/L 34-104 Alt 52 U/L 7-52 Ast 33 U/L 13-39 Egfr Non- 119.4 >60 Egfr 153.6 >60 23 CBC Auto Diff 05/22/2016 White Blood Count 7.1 10^3/uL 3.5-10.8 Red Blood Count 5.48 10^6/uL High 4.0-5.4 Hemoglobin 16.4 g/dL 14.0-18.0 Hematocrit 49 % 42-52 Mean Corpuscular Volume 89 fL 80-94 Mean Corpuscular Hemoglobin 30 pg 27-31 Mean Corpuscular HGB Conc 34 g/dL 31-36 Red Cell Distribution Width 14 % 10.5-15 Platelet Count 333 10^3/uL 150-450 Mean Platelet Volume 9 um3 7.4-10.4 Abs Neutrophils 5.2 10^3/uL 1.5-7.7 Abs Lymphocytes 1.4 10^3/uL 1.0-4.8 Abs Monocytes 0.3 10^3/uL 0-0.8 Abs Eosinophils 0 10^3/uL 0-0.6 Abs Basophils 0 10^3/uL 0-0.2 Abs Nucleated RBC 0.01 10^3/uL Granulocyte % 74.1 % 38-83 Lymphocyte % 20.6 % Low 25-47 Monocyte % 4.6 % 1-9 Eosinophil % 0 % 0-6 Basophil % 0.7 % 0-2 Nucleated Red Blood Cells % 0.2 Ua Routine 05/03/2016 Ua Specific [place] 1.010 Ua PH 7 Ua Color yellow Ua Appera clear Ua WBC -- Ua Protein trace Ua Glucose -- Ua Ketones -- Ua Bilirubin small Ua Urobilinogen normal Ua Nitrite -- Ua Occult Blood -- CBC Auto Diff 07/24/2015 White Blood Count 12.4 10^3/uL High 3.5-10.8 Red Blood Count 4.65 10^6/uL 4.0-5.4 Hemoglobin 14.1 g/dL 14.0-18.0 Hematocrit 42 % 42-52 Mean Corpuscular Volume 90 fL 80-94 Mean Corpuscular Hemoglobin 30 pg 27-31 Mean Corpuscular HGB Conc 34 g/dL 31-36 Red Cell Distribution Width 15 % 10.5-15 Platelet Count 247 10^3/uL 150-450 Mean Platelet Volume 7 um3 Low 7.4-10.4 Abs Neutrophils 11.2 10^3/uL High 1.5-7.7 Abs Lymphocytes 0.7 10^3/uL Low 1.0-4.8 Abs Monocytes 0.5 10^3/uL 0-0.8 Abs Eosinophils 0 10^3/uL 0-0.6 Abs Basophils 0 10^3/uL 0-0.2 Abs Nucleated RBC 0.01 10^3/uL Granulocyte % 90.3 % High 38-83 Lymphocyte % 5.5 % Low 25-47 Monocyte % 4.0 % 1-9 Eosinophil % 0 % 0-6 Basophil % 0.2 % 0-2 Nucleated Red Blood Cells % 0 Inr/Protime 07/24/2015 Inr 1.06 0.89-1.11 Laboratory test finding 07/24/2015 Partial Thrombo Time 32.2 seconds 26.0 -36.3 PTT Comp Metabolic Panel 07/24/2015 Sodium 135 mmol/L 133-145 Potassium 4.1 mmol/L 3.5-5.0 Chloride 103 mmol/L 101-111 Co2 Carbon Dioxide 24 mmol/L 22-32 Anion Gap 8 mmol/L 2-11 Glucose 112 mg/dL High 70-100 Blood Urea Nitrogen 12 mg/dL 6-24 Creatinine 0.84 mg/dL 0.67-1.17 BUN/Creatinine Ratio 14.3 8-20 Calcium 9.4 mg/dL 8.6-10.3 Total Protein 7.7 g/dL 6.4-8.9 Albumin 4.3 g/dL 3.2-5.2 Globulin 3.4 g/dL 2-4 Albumin/Globulin Ratio 1.3 1-3 Total Bilirubin 0.80 mg/dL 0.2-1.0 Alkaline Phosphatase 48 U/L 34-104 Alt 15 U/L 7-52 Ast 15 U/L 13-39 Egfr Non- 110.5 >60 Egfr 142.0 >60 24 Laboratory test finding 07/24/2015 Creatine Kinase(CK) 105 U/L 10-223 Lactic Acid 0.7 mmol/L 0.5-2.0 25 C Reactive Protein 111.10 mg/L High < 5.00 26 Blood Culture SEE RESULT BELOW 27 HIV 1&2 AB Self Referred Nonreactive Nonreactive 28 CBC Auto Diff 07/24/2015 White Blood Count 12.4 10^3/uL High 3.5-10.8 Red Blood Count 4.65 10^6/uL 4.0-5.4 Hemoglobin 14.1 g/dL 14.0-18.0 Hematocrit 42 % 42-52 Mean Corpuscular Volume 90 fL 80-94 Mean Corpuscular Hemoglobin 30 pg 27-31 Mean Corpuscular HGB Conc 34 g/dL 31-36 Red Cell Distribution Width 15 % 10.5-15 Platelet Count 247 10^3/uL 150-450 Mean Platelet Volume 7 um3 Low 7.4-10.4 Abs Neutrophils 11.2 10^3/uL High 1.5-7.7 Abs Lymphocytes 0.7 10^3/uL Low 1.0-4.8 Abs Monocytes 0.5 10^3/uL 0-0.8 Abs Eosinophils 0 10^3/uL 0-0.6 Abs Basophils 0 10^3/uL 0-0.2 Abs Nucleated RBC 0.01 10^3/uL Granulocyte % 90.3 % High 38-83 Lymphocyte % 5.5 % Low 25-47 Monocyte % 4.0 % 1-9 Eosinophil % 0 % 0-6 Basophil % 0.2 % 0-2 Nucleated Red Blood Cells % 0 Laboratory test finding 07/24/2015 Inr/Protime 1.06 0.89-1.11 Partial Thrombo Time PTT 32.2 seconds 26.0-36.3 Comp Metabolic Panel 07/24/2015 Sodium 135 mmol/L 133-145 Potassium 4.1 mmol/L 3.5-5.0 Chloride 103 mmol/L 101-111 Co2 Carbon Dioxide 24 mmol/L 22-32 Anion Gap 8 mmol/L 2-11 Glucose 112 mg/dL High 70-100 Blood Urea Nitrogen 12 mg/dL 6-24 Creatinine 0.84 mg/dL 0.67-1.17 BUN/Creatinine Ratio 14.3 8-20 Calcium 9.4 mg/dL 8.6-10.3 Total Protein 7.7 g/dL 6.4-8.9 Albumin 4.3 g/dL 3.2-5.2 Globulin 3.4 g/dL 2-4 Albumin/Globulin Ratio 1.3 1-3 Total Bilirubin 0.80 mg/dL 0.2-1.0 Alkaline Phosphatase 48 U/L 34-104 Alt 15 U/L 7-52 Ast 15 U/L 13-39 Egfr Non- 110.5 >60 Egfr 142.0 >60 29 Laboratory test finding 07/24/2015 Creatine Kinase(CK) 105 U/L 10-223 Lactic Acid 0.7 mmol/L 0.5-2.0 30 C Reactive Protein 111.10 mg/L High < 5.00 31 HIV 1&2 AB Self Referred Nonreactive Nonreactive 32 Blood Culture SEE RESULT BELOW 33 CBC Auto Diff 06/17/2015 White Blood Count 6.7 10^3/uL 3.5-10.8 Red Blood Count 4.74 10^6/uL 4.0-5.4 Hemoglobin 14.2 g/dL 14.0-18.0 Hematocrit 43 % 42-52 Mean Corpuscular Volume 91 fL 80-94 Mean Corpuscular Hemoglobin 30 pg 27-31 Mean Corpuscular HGB Conc 33 g/dL 31-36 Red Cell Distribution Width 15 % 10.5-15 Platelet Count 283 10^3/uL 150-450 Mean Platelet Volume 8 um3 7.4-10.4 Abs Neutrophils 5.1 10^3/uL 1.5-7.7 Abs Lymphocytes 1.2 10^3/uL 1.0-4.8 Abs Monocytes 0.3 10^3/uL 0-0.8 Abs Eosinophils 0 10^3/uL 0-0.6 Abs Basophils 0 10^3/uL 0-0.2 Abs Nucleated RBC 0 10^3/uL Granulocyte % 76.3 % 38-83 Lymphocyte % 18.2 % Low 25-47 Monocyte % 4.8 % 1-9 Eosinophil % 0.3 % 0-6 Basophil % 0.4 % 0-2 Nucleated Red Blood Cells % 0.1 Comp Metabolic Panel 06/17/2015 Sodium 139 mmol/L 133-145 Potassium 4.6 mmol/L 3.5-5.0 Chloride 107 mmol/L 101-111 Co2 Carbon Dioxide 25 mmol/L 22-32 Anion Gap 7 mmol/L 2-11 Glucose 100 mg/dL 70-100 Blood Urea Nitrogen 9 mg/dL 6-24 Creatinine 0.71 mg/dL 0.67-1.17 BUN/Creatinine Ratio 12.7 8-20 Calcium 9.4 mg/dL 8.6-10.3 Total Protein 7.2 g/dL 6.4-8.9 Albumin 4.5 g/dL 3.2-5.2 Globulin 2.7 g/dL 2-4 Albumin/Globulin Ratio 1.7 1-3 Total Bilirubin 0.40 mg/dL 0.2-1.0 Alkaline Phosphatase 60 U/L 34-104 Alt 19 U/L 7-52 Ast 18 U/L 13-39 Egfr Non- 134.1 >60 Egfr 172.5 >60 34 Laboratory test finding 06/17/2015 Erythrocyte Sed Rate 29 mm/Hr High 0- 14 C Reactive Protein 42.78 mg/L High < 5.00 35 Drug Abuse [facility]-20 03/07/2010 Urine Alcohol Negative mg/dL Cutoff: 30 Urine Ampetamines Negative ng/mL () 36 Urine Barbiturates Negative ng/mL () 37 Urine Benzodiazepines Negative ng/mL () 38 Urine Cocaine Reflex* ng/mL () 39 Urine Methadone Negative ng/mL () 40 Urine Opiates Reflex* ng/mL () 41 Urine Phencyclidine Negative ng/mL Cutoff: 25 Urine Propoxyphene Negative ng/mL () 42 Urine Tetrahydrocannabinol Reflex* ng/mL Cutoff: 20 43 Cocaine Confirmation Urine 03/07/2010 Urine Cocaine Screen Positive () 44 Cocaine By GC/MS Negative ng/mL Cutoff: 50 Benzoylecgonine By GC/MS 644 ng/mL Cutoff: 50 Urine Cocaine Interpretation Positive () 45 THC Confirmation,Urine 03/07/2010 Urine THC Screen Positive Cutoff: 20 THC Carboxylic Acid By GC/MS 206 ng/mL Cutoff: 3 Urine THC Interpretation Positive () 46 Opiates, Urine 03/07/2010 Urine Opiates Screen Positive () 47 Urine Codeine By GC/MS Negative ng/mL () 48 Urine Hydrocodone By GC/MS Negative ng/mL () 49 Urine Hydromophone By GC/MS 224 ng/mL () 50 Urine Morphine By GC/MS 106 ng/mL () 51 Urine Oxycodone By GC/MS Negative ng/mL () 52 Urine Opiates Interpretation Positive () 53 1 Store Team Member: [id number] SEE RESULT BELOW Name: ISHAN GO : [address]: Nick Dos Santos MD Acct: [id number] Unit: [id number] AGE: 26 Location: ED Re04/15/17 SEX: M Status: REG ER SPEC: [id number] AGUSTIN: 04/15/[address]: [place] JARRETT REQ: [id number] RECD: 04/15/17 STATUS: DANIEL FRANCISCO DR: Kenji Dos Santos MD _ SOURCE: THROAT SPDESC: ORDERED: Strep A Request Procedure Result Reported Site Rapid Strep A Request Final 04/15/17- 1755 ML Specimen received for Rapid Strep A Molecular testing * ML - MAIN LAB ([facility]) . END OF REPORT * ML=Testing performed at Main Lab DEPARTMENT OF PATHOLOGY, [address] [place] [address] Francisco J King M.D. Director [facility] # [id number] 3 Result in log IU/mL is 6.83. ADDITIONAL INFORMATION The quantification range of this assay is 15 to 100,000,000 IU/mL (1.18 log to 8.00 log IU/mL). Testing was performed using the valerie HCV test ([employer] with the valerie Ad Infuse0 System. Test Performed by: [facility] [address] [place] [id number] 4 Test Result Flag Unit RefValue HCV RNA Genotype 1 NS5a Drug Resist HCV NS5a Subtype 1a Daclatasvir Resistance NOT PREDICTED Ledipasvir Resistance NOT PREDICTED Ombitasvir Resistance NOT PREDICTED Elbasvir Resistance NOT PREDICTED Velpatasvir Resistance NOT PREDICTED Mutations Detected: NONE This assay is designed to amplify HCV genotypes 1a and 1b and may not successfully amplify other HCV genotypes. This test utilizes RT-PCR and DNA sequencing to detect the presence of treatment-emergent HCV NS5a variants associated with Ns5a inhibitor antiviral therapy. The clinical significance of NS5a resistance associated variants for antiviral therapy may vary according to the clinical status and antiviral treatment experience of the HCV-infected patient. Testing for NS5a resistance-associated variants prior to initiation of treatment with elbasvir plus grazoprevir in HCV genotype 1a infected patients is recommended. For further guidance consult with the package inserts of the applicable direct acting agents and guideline documents such as the AASLD and IDSA guidelines available at http://hcvguidelines.org. For additional information, please refer to http://education.[employer]/faq/OMB435 This test was developed and its analytical performance characteristics have been determined by [facility]. It has not been cleared or approved by the FDA. This assay has been validated pursuant to the CLIA regulations and is used for clinical purposes. Test Performed by: [facility] [address] [place] [address] 5 It is recognized that currently available assays for the detection of antibodies to HIV-1 and/or HIV-2 may not detect all infected individuals. HIV antibodies may be undetectable in some stages of the infection and in some clinical conditions. The performance of this assay has not been established for populations of infants or children. Assayed by Chemiluminescence Microparticle Immunoassay on the Siemens Advia Centaur CP. Values obtained with different methods or kits cannot be used interchangeably.The diagnostic specificity of the ADVIA Centaur 1/O/2 Enhanced assay in the low risk population was 99.90% (6052/6058) with a 95% confidence interval of 99.78 to 99.96%. 6 no fibrosis Fibro Test Score Metavir Score 0.00-0.21 F0 no fibrosis 0.22-0.27 F0-F1 0.28-0.31 F1 minimal fibrosis 0.32-0.48 F1-F2 0.49-0.58 F2 moderate fibrosis 0.59-0.72 F3 advanced fibrosis 0.73-0.74 F3-F4 0.75-1.00 F4 severe fibrosis 7 no activity ActiTest Score Metavir Score 0.00-0.17 A0 no activity 0.18-0.29 A0-A1 0.30-0.36 A1 minimal activity 0.37-0.52 A1-A2 0.53-0.60 A2 significant activity 0.61-0.62 A2-A3 0.63-1.00 A3 severe activity 8 The reliability of results is dependent on compliance with the preanalytical and analytical conditions recommended by [employer]. The tests have to be deferred for: acute hemolysis, acute hepatitis, acute inflammation, extra hepatic cholestasis. The advice of a specialist should be sought for interpretation in chronic hemolysis and Gilbert's syndrome. The test interpretation is not validated in liver transplant patients. Isolated extreme values of one of the components should lead to caution in interpreting the results. In case of discordance between a biopsy result and a test, it is recommended to seek the advice of a specialist. The causes of these discordances could be due to a flaw of the test or to a flaw in the biopsy: i.e. a liver biopsy has a 33% variability rate for one fibrosis stage. FibroTest is interpretable for chronic hepatitis B and C, alcoholic and non alcoholic steatosis. ActiTest is interpretable for chronic hepatitis B and C. The performance characteristics have been determined by [facility]. It has not been cleared or approved by the U.S. Food and Drug Administration. Performance characteristics refer to the analytical performance of the test. [facility], the associated logo, [place] and all associated [employer] frost are the registered trademarks of [employer]. All third green party frost - (R) and (TM) - are the property of their respective owners. (C) 0502-2003 [employer]. All rights reserved. Test Performed by: [facility] [address] [place] [address] 9 This assay does not differentiate between reactivity due to a vaccine-induced immune response or an immune response induced by infection with HBV. 10 ADDITIONAL INFORMATION This test was performed using the Jordan RealTime HCV Genotype II assay ([employer] [place], [place]). Test Performed by: [facility] [address] [place] [address] 11 Comment: right forearm 12 SEE RESULT BELOW Name: SARIISHAN W : [address]: Nick Morales MD Acct: [id number] Unit: [id number] AGE: 26 Location: ED Re01/06/17 SEX: M Status: DEP ER SPEC: [id number] AGUSTIN: 01/06/[address]: Traci JARRETT REQ: [id number] RECD: 01/06/17 STATUS: RES FILIBERTO DR: Kenji Morales MD _ SOURCE: ARM RIGHT SPDESC: ORDERED: Culture Stain COMMENTS: Comment: right forearm Procedure Result Reported Site Wound/Misc Gram Stain Final 01/06/17- 1553 ML 4+ Neutrophils 3+ Gram Positive Cocci 2+ Gram Negative Coccobacilli Wound/Misc Culture PENDING * ML - MAIN LAB ([facility]) . END OF REPORT * ML=Testing performed at Main Lab DEPARTMENT OF PATHOLOGY, [address] [place] [address] Francisco J King M.D. Director [facility] # [id number] 13 SEE RESULT BELOW Name: ISHAN GO : [address]: Nick Morales MD Acct: [id number] Unit: [id number] AGE: 26 Location: ED Re01/06/17 SEX: M Status: DEP ER SPEC: [id number] AGUSTIN: 01/06/[address]: Traci JARRETT REQ: [id number] RECD: 01/06/17 STATUS: DANIEL FRANCISCO DR: Kenji Morales MD _ SOURCE: ARM RIGHT SPDESC: ORDERED: MRSA/SA SSTI, Culture Stain COMMENTS: Comment: right forearm Verbal to [id number] by [email or web address] at 1716 on 01/06/17. Results read back accurately. Procedure Result Reported Site MRSA/S. aureus SSTI PCR Final 01/06/17- 1717 ML Organism 1 MRSA POSITIVE Organism 2 S.AUREUS POSITIVE Wound/Misc Gram Stain Final 01/06/17- 1553 ML 4+ Neutrophils 3+ Gram Positive Cocci 2+ Gram Negative Coccobacilli Wound/Misc Culture Final 01/09/17- 0909 ML Organism 1 MRSA Quantity 3+ Organism 2 ENTEROBACTER CLOACAE Quantity 1+ Organism 3 STREPTOCOCCUS CONSTELLATUS Quantity 3+ MRSA: Consistent with previous results. CONTINUED ON NEXT PAGE * ML=Testing performed at Main Lab DEPARTMENT OF PATHOLOGY, [address] [place] [address] Francisco J King M.DStevenson BLANCAS # [id number] Patient: ISHAN GO [id number] (Continued) Specimen: [id number] Collected: 01/06/17 Received: 01/06/17 (Continued) Procedure Result Reported Site Wound/Misc Culture Final (continued) 01/09/17- 908 1. MRSA M.I.C. RX --------- ------ Penicillin >=0.5 R Clindamycin <=0.25 S Erythromycin >=8 R Gentamicin <=0.5 S Linezolid 2 S Nitrofurantoin <=16 S Oxacillin >=4 R * Quinupristin/Dalfopristin 0.5 S Rifampin <=0.5 S Tetracycline <=1 S Doxycycline - Deduced S * Minocycline - Deduced S Trimethoprim/Sulfamethoxazole <=10 S Vancomycin 1 S Imipenem-Deduced R * Ampicillin/Sulbactam-Deduced R Cefazolin-Deduced R 2. ENTEROBACTER CLOACAE M.I.C. RX --------- ------ Cefazolin >=64 R Cefepime <=1 S Ceftriaxone <=1 S Ciprofloxacin <=0.25 S Gentamicin <=1 S Levofloxacin <=0.12 S Meropenem <=0.25 S Nitrofurantoin 64 I Tetracycline <=1 S Trimethoprim/Sulfamethoxazole <=20 S Amoxicillin/Clavulanic Acid R CONTINUED ON NEXT PAGE * ML=Testing performed at Main Lab DEPARTMENT OF PATHOLOGY, [address] [place] [address] Francisco J King M.D. Director [facility] # [id number] Patient: ISHAN GO [id number] (Continued) Specimen: [id number] Collected: 01/06/17 Received: 01/06/17 (Continued) Procedure Result Reported Site Wound/Misc Culture Final (continued) 01/09/17908 2. ENTEROBACTER CLOACAE (continued) M.I.C. RX --------- ------ Aztreonam <=1 S 3. STREPTOCOCCUS CONSTELLATUS M.I.C. RX --------- ------ Chloramphenicol 2 S Ampicillin 0.12 S Penicillin <=0.03 S Cefepime <=0.25 S * Cefotaxime <=0.25 S Ceftriaxone <=0.25 S Levofloxacin 0.5 S Azithromycin >2 R Clindamycin R Erythromycin >0.5 R Tetracycline 4 I Vancomycin 0.5 S * These antibiotics are not available in the [facility] Formulary Contact the Microbiology Department for any additional antibiotic reporting. Contact the Microbiology Department for any additional antibiotic reporting. * ML - MAIN LAB ([facility]) . END OF REPORT * ML=Testing performed at Main Lab DEPARTMENT OF PATHOLOGY, [address] [place] [address] Francisco J King M.D. Director [facility] # [id number] 14 --- 01/06/17 1508 --- Total Protein previously reported as: < 3.0 L g/dL 15 --- 01/06/17 1510 --- Globulin previously reported as: -1.5 L g/dL 16 --- 01/06/17 1510 --- A/G Ratio previously reported as: -3.0 L 17 Because ethnic data is not always readily available, this report includes an eGFR for both -Americans and non- Americans. The National Kidney Disease Education Program (NKDEP) does not endorse the use of the MDRD equation for patients that are not between the ages of 18 and 70, are , have extremes of body size, muscle mass, or nutritional status, or are non- or non-. According to the National Kidney Foundation, irrespective of diagnosis, the stage of the disease is based on the level of kidney function: Stage Description GFR(mL/min/1.73 m(2)) 1 Kidney damage with normal or decreased GFR 90 2 Kidney damage with mild decrease in GFR 60-89 3 Moderate decrease in GFR 30-59 4 Severe decrease in GFR 15-29 5 Kidney failure <15 (or dialysis) 18 SEE RESULT BELOW Name: ISHAN GO : [address]: Nick Morales MD Acct: [id number] Unit: [id number] AGE: 26 Location: ED Re01/06/17 SEX: M Status: DEP ER SPEC: [id number] AGUSTIN: 01/06/17-[address] [facility] [address]: Traci JARRETT REQ: [id number] RECD: 01/06/17 STATUS: DANIEL FRANCISCO DR: Kenji Morales MD _ SOURCE: BLOOD,VENO SPDESC: ORDERED: Blood Cult COMMENTS: Verbal to [id number] by [id number] at 2230 on 01/07/17. Results read back accurately. Procedure Result Reported Site Aerobic Culture Bottle Final 01/09/17- 0802 ML Aerobic Bottle Gram Stain Gram Negative Bacilli Organism 1 SPHINGOBACTERIUM SPIRITIVORUM POSSIBLE CONTAMINANT 1. SPHINGOBACTERIUM SPIRITIVORUM M.I.C. RX --------- ------ Ampicillin >=32 R Cefazolin 16 I Ceftriaxone 32 I Ciprofloxacin 1 S Gentamicin >=16 R Levofloxacin 1 S Meropenem 2 S Nitrofurantoin 64 I Tetracycline 4 S Pipercillin/Tazobactam 32 I Trimethoprim/Sulfamethoxazole <=20 S Amoxicillin/Clavulanic Acid 16 I Aztreonam >=64 R Contact the Microbiology Department for any additional antibiotic reporting. CONTINUED ON NEXT PAGE * ML=Testing performed at Main Lab DEPARTMENT OF PATHOLOGY, [address] [place] [address] Francisco J King M.D. Director [facility] # [id number] Patient: ISHAN GO [id number] (Continued) Specimen: [id number] Collected: 01/06/17-1421 Received: 01/06/17-1499 (Continued) Procedure Result Reported Site Anaerobic Culture Bottle Final 01/11/17- 1500 ML No Growth Day 5 * ML - [facility] ([facility]) . END OF REPORT * ML=Testing performed at Main [facility] DEPARTMENT OF PATHOLOGY, [address] [place] [address] Francisco J King M.D. Director [facility] # [id number] 19 High reactive sample are considered positive for Hepatitis C 20 Result in log IU/mL is 6.84. ADDITIONAL INFORMATION The quantification range of this assay is 15 to 100,000,000 IU/mL (1.18 log to 8.00 log IU/mL). Testing was performed by the VALERIE AmpliPrep/VALERIE TaqMan HCV Test, version 2.0 ([employer] Test Performed by: [address] [address] 21 High reactive sample are considered positive for Hepatitis C 22 Result in log IU/mL is 6.50. ADDITIONAL INFORMATION The quantification range of this assay is 15 to 100,000,000 IU/mL (1.18 log to 8.00 log IU/mL). Testing was performed by the VALERIE AmpliPrep/VALERIE TaqMan HCV Test, version 2.0 ([employer] Test Performed by: [place] [address] Jacquard Loom Fixer: Kristian Degroot II, M.D., Ph.D. 23 Because ethnic data is not always readily available, this report includes an eGFR for both -Americans and non- Americans. The National Kidney Disease Education Program (NKDEP) does not endorse the use of the MDRD equation for patients that are not between the ages of 18 and 70, are , have extremes of body size, muscle mass, or nutritional status, or are non- or non-. According to the National Kidney Foundation, irrespective of diagnosis, the stage of the disease is based on the level of kidney function: Stage Description GFR(mL/min/1.73 m(2)) 1 Kidney damage with normal or decreased GFR 90 2 Kidney damage with mild decrease in GFR 60-89 3 Moderate decrease in GFR 30-59 4 Severe decrease in GFR 15-29 5 Kidney failure <15 (or dialysis) 24 Because ethnic data is not always readily available, this report includes an eGFR for both -Americans and non- Americans. The National Kidney Disease Education Program (NKDEP) does not endorse the use of the MDRD equation for patients that are not between the ages of 18 and 70, are , have extremes of body size, muscle mass, or nutritional status, or are non- or non-. According to the National Kidney Foundation, irrespective of diagnosis, the stage of the disease is based on the level of kidney function: Stage Description GFR(mL/min/1.73 m(2)) 1 Kidney damage with normal or decreased GFR 90 2 Kidney damage with mild decrease in GFR 60-89 3 Moderate decrease in GFR 30-59 4 Severe decrease in GFR 15-29 5 Kidney failure <15 (or dialysis) 25 [facility] Severe Sepsis and Septic Shock Management Bundle Measure requires all lactic acids initially measuring >2.0mmol/L be repeated. 26 Acute inflammation: >10.00 27 SEE RESULT BELOW Name: ISHAN GO : [address]: Emily Campos DO Acct: [id number] Unit: [id number] AGE: 24 Location: [place] [address]- Re07/24/15 Dis: 07/26/15 SEX: M Status: DIS IN SPEC: [id number] AGUSTIN: 07/24/[address]: Martha JARRETT REQ: [id number] RECD: 07/24/15 STATUS: DANIEL FRANCISCO DR: Lionel Cordon MD _ SOURCE: BLOOD,VENO SPDESC: ORDERED: Blood Cult Procedure Result Reported Site Aerobic Culture Bottle Final 07/29/15- 2156 ML No Growth Day 5 Anaerobic Culture Bottle Final 07/29/15- 2157 ML No Growth Day 5 * ML - [facility] ([facility]) . END OF REPORT * ML=Testing performed at Main Lab DEPARTMENT OF PATHOLOGY, [address] [place] [address] Francisco J King M.D. Director [facility] # [id number] 28 It is recognized that currently available assays for the detection of antibodies to HIV-1 and/or HIV-2 may not detect all infected individuals. HIV antibodies may be undetectable in some stages of the infection and in some clinical conditions. The performance of this assay has not been established for populations of infants or children. Assayed by Chemiluminescence Microparticle Immunoassay on the Siemens Advia Centaur CP. Values obtained with different methods or kits cannot be used interchangeably.The diagnostic specificity of the ADVIA Centaur 1/O/2 Enhanced assay in the low risk population was 99.90% (6052/6058) with a 95% confidence interval of 99.78 to 99.96%. 29 Because ethnic data is not always readily available, this report includes an eGFR for both -Americans and non- Americans. The National Kidney Disease Education Program (NKDEP) does not endorse the use of the MDRD equation for patients that are not between the ages of 18 and 70, are , have extremes of body size, muscle mass, or nutritional status, or are non- or non-. According to the National Kidney Foundation, irrespective of diagnosis, the stage of the disease is based on the level of kidney function: Stage Description GFR(mL/min/1.73 m(2)) 1 Kidney damage with normal or decreased GFR 90 2 Kidney damage with mild decrease in GFR 60-89 3 Moderate decrease in GFR 30-59 4 Severe decrease in GFR 15-29 5 Kidney failure <15 (or dialysis) 30 [facility] Severe Sepsis and Septic Shock Management Bundle Measure requires all lactic acids initially measuring >2.0mmol/L be repeated. 31 Acute inflammation: >10.00 32 It is recognized that currently available assays for the detection of antibodies to HIV-1 and/or HIV-2 may not detect all infected individuals. HIV antibodies may be undetectable in some stages of the infection and in some clinical conditions. The performance of this assay has not been established for populations of infants or children. Assayed by Chemiluminescence Microparticle Immunoassay on the Siemens Advia Centaur CP. Values obtained with different methods or kits cannot be used interchangeably.The diagnostic specificity of the ADVIA Centaur 1/O/2 Enhanced assay in the low risk population was 99.90% (6052/6058) with a 95% confidence interval of 99.78 to 99.96%. 33 SEE RESULT BELOW Name: ISHAN GO : [address]: Keith Torres MD Acct: [id number] Unit: [id number] AGE: 24 Location: [address] Re07/24/15 SEX: M Status: ADM IN SPEC: [id number] AGUSTIN: 07/24/[address] [facility] [address]: Martha JARRETT REQ: [id number] RECD: 07/24/15 STATUS: RES [facility] DR: Lionel Cordon MD _ SOURCE: BLOOD,VENO [facility]: ORDERED: Blood Cult Procedure Result Reported Site Aerobic Culture Bottle Preliminary 07/25/15- 2156 ML No Growth Day 1 Anaerobic Culture Bottle Preliminary 07/25/15- 2156 ML No Growth Day 1 * ML - [facility] ([facility]) . END OF REPORT * ML=Testing performed at Main Lab DEPARTMENT OF PATHOLOGY, [address] [place] [address] Francisco J King M.D. Director [facility] # [id number] 34 Because ethnic data is not always readily available, this report includes an eGFR for both -Americans and non- Americans. The National Kidney Disease Education Program (NKDEP) does not endorse the use of the MDRD equation for patients that are not between the ages of 18 and 70, are , have extremes of body size, muscle mass, or nutritional status, or are non- or non-. According to the National Kidney Foundation, irrespective of diagnosis, the stage of the disease is based on the level of kidney function: Stage Description GFR(mL/min/1.73 m(2)) 1 Kidney damage with normal or decreased GFR 90 2 Kidney damage with mild decrease in GFR 60-89 3 Moderate decrease in GFR 30-59 4 Severe decrease in GFR 15-29 5 Kidney failure <15 (or dialysis) 35 Acute inflammation: >10.00 36 -- REFERENCE VALUE -- Cutoff: 500 37 -- REFERENCE VALUE -- Cutoff: 200 38 -- REFERENCE VALUE -- Cutoff: 200 39 *Drug confirmation ordered by reflex. Refer to confirmation result to follow for the definitive result. -- REFERENCE VALUE -- Cutoff: 300 40 -- REFERENCE VALUE -- Cutoff: 300 41 *Drug confirmation ordered by reflex. Refer to confirmation result to follow for the definitive result. -- REFERENCE VALUE -- Cutoff: 300 42 -- REFERENCE VALUE -- Cutoff: 300 43 *Drug confirmation ordered by reflex. Refer to confirmation result to follow for the definitive result. This report is intended for use in clinical monitoring or management of patients. It is not intended for use in employment-related testing. Test Performed by: [facility] Dpt of Lab Med and Pathology [address] [place] [address] Jacquard Loom Fixer: Mickey Strong III, M.D. 44 -- REFERENCE VALUE -- Cutoff: 300 45 This report is intended for use in clinical monitoring and management of patients. It is not intended for use in employment-related drug testing. Test Performed by: [facility] Dpt of Lab Med and Pathology [address] [place] [address] Jacquard Loom Fixer: Mickey Strong III, M.D. 46 This report is intended for use in clinical monitoring and management of patients. It is not intended for use in employment-related drug testing. Test Performed by: [facility] Dpt of Lab Med and Pathology [address] [place] [address] Jacquard Loom Fixer: Mickey Strong III, M.D. 47 -- REFERENCE VALUE -- Cutoff: 300 48 -- REFERENCE VALUE -- Cutoff: 100 49 -- REFERENCE VALUE -- Cutoff: 100 50 -- REFERENCE VALUE -- Cutoff: 100 51 -- REFERENCE VALUE -- Cutoff: 100 52 -- REFERENCE VALUE -- Cutoff: 100 53 Presence of morphine at low concentration (<2000 ng/mL) may be due to poppy seed ingestion. This report is intended for use in clinical monitoring and management of patients. It is not intended for use in employment-related drug testing. Test Performed by: [facility] Dpt of Lab Med and Pathology [address] [place] [address] Jacquard Loom Fixer: Mickey Strong III, M.D. Procedures Date CPT Code Description Status 03/27/2017 72351 Short Arm Cast Application Completed 03/11/2017 30567 FX Metacarpal Percutaneous Skeletal Fixation Completed 03/11/2017 51046 FX Metacarpal Percutaneous Skeletal Fixation Completed 02/15/2017 09286 Closed TX Metacarpal FX Single W/O Manipulation, Ea Completed Bone 10/01/2016 14438 Open TX Articular FX,Involv Metacarpophalangeal Or Completed Interphal JT 10/01/2016 21577 Open TX Articular FX,Involv Metacarpophalangeal Or Completed Interphal JT 05/03/2016 19955 EKG Tracing & Interpretation Completed 04/19/2010 60883 Closed TX Phalanx finger/thumb shaft w/o manipulation Completed Encounters Type Date Location Provider CPT E/M Dx Office Visit 03/22/2017 [facility] Beatrice Knott [address] B18.2 11:10a Infectious Diseases Raven Sinclair Office Visit 03/08/2017 [place] [address] S62.334A 11:15a Of [place].M.AStevenson S62.624D Office Visit 01/11/2017 11:15a [facility], [address] A49.02 Nicole Carbajal A49.02 L03.113 L03.113 Office Visit 01/07/2017 2:40p [facility] Internal Kenji Garg, [address]364 A49.02 Medicine - [address] Raven,FACP L03.113 F11.19 Office Visit 12/18/2016 11:10a [facility] Beatrice Sinclair, [address] B18.2 Infectious Oc Carbajal Office Visit 12/10/2016 1:00p [facility] [place] [address] M54.5 - [place] S62.624D Office Visit 11/16/2016 2:40p [facility] [place] [address] M54.5 [place] Office Visit 11/09/2016 4:20p [facility] [place] [address] M54.5 [place] I10 Office Visit 09/26/2016 2:15p [place] [address] S62.624A Of [facility] Office Visit 05/03/2016 2:00p [facility] [place] [address] I10 - [place] B18.2 Office Visit 03/07/2016 2:00p [facility] [place] [address] F19.10 - [place] Office Visit 10/14/2015 10:00a [place] [address] S93.402A Of [facility] Office Visit 07/26/2015 8:58a [facility] Beatrice Knott [address] L02.413 Infectious Diseases Raven Sinclair M72.8 B95.7 F19.10 Office Visit 07/26/2015 3:18p [facility], María Elena Orlando N.PStevenson [address] L02.91 Hospitalists A41.9 F19.10 M72.9 Office Visit 07/25/2015 3:18p [facility], Rnada Weiner.PStevenson 53571 L02.91 Hospitalists A41.9 M72.9 F19.10 Office Visit 07/25/2015 9:41a [facility] Beatrice Knott 60362 L02.414 Infectious Diseases Raven Sinclair B96.89 F19.10 Office Visit 07/24/2015 3:17p [facility],Randa Martin.PStevenson 66551 L02.91 Hospitalists A41.9 M72.9 F19.10 Office Visit 06/17/2015 2:20p [facility] Internal Medicine Tri Aguirre M.D. 06518 L02.434 - [place] F11.10 Office Visit 09/07/2014 11:00a [facility] Internal Lionel Barcenas M.D. 02314 466.0 Medicine - [address] 722.93 756.11 Office Visit 08/24/2014 1:00p Nuclear Scientist Internal Lionel Barcenas M.D. 61161 466.0 Medicine - [address] 305.1 Office Visit 03/03/2012 1:00p Neurosurgery Services Akin TrianaStevenson Burnett, 73273 756.11 Of Nuclear Scientist M.D. Office Visit 12/10/2011 1:00p Neurosurgery Services [place] Melendez, 81629 756.11 Of Nuclear Scientist N.P. Office Visit 08/09/2010 10:20a DO Not Use Nuclear Scientist At Lionelfeliberto Barcenas, 34425 466.0 [place] M.D. Office Visit 04/10/2010 11:40a DO Not Use Nuclear Scientist At [place], 17404 466.0 [place] M.DStevenson 756.11 305.1 Office Visit 03/07/2010 11:40a DO Not Use Nuclear Scientist At Lionel Barcenas M.D. 72221 724.2 [place] 305.1 V04.81 Office Visit 03/01/2010 11:20a DO Not Use Nuclear Scientist At [facility]el Barcenas M.D. 36243 724.2 [place] 305.1 Office Visit 10/20/2009 2:00p Neurosurgery Services Fracisco Jason, 27040 756.11 Of Nicole M.DStevenson Office Visit 10/17/2009 11:00a Neurosurgery Services Fracisco Jason, 83379 756.11 Of Nicole Carbajal 305.1 Office Visit 02/25/2007 2:00p Neurosurgery Services Fracisco Jason 61636 756.11 Of Nicole M.DStevenson Office Visit 02/20/2007 1:45p Neurosurgery Services Fracisco Jason, 75581 756.11 Of Nicole Martins.Nikos 724.2 Plan of Care Future Appointment(s):08/27/2017 11:30 am - Isael Sinclair M.D. at [facility] For Infectious Iuqzqqiy21/26/2018 - Isael Sinclair M.D.B18.2 Chronic viral hepatitis CComments:continue same treatment, VL now; and follow up after treatment is completedFollow up:2 months
[2017-07-01 22:31] LABS: ABS Basophils 0 10^3/ul (0-0.2); ABS Eosinophils 0 10^3/ul (0-0.6); ABS Monocytes 0.7 10^3/ul (0-0.8); ABS Neutrophils 8.8 10^3/ul (1.5-7.7); ABS Nucleated RBC 0 10^3/ul; Eosinophil % 0.1 % (0-6); Hematocrit 44 % (42-52); Hemoglobin 15.1 g/dl (14.0-18.0); Lymphocyte % 9.2 % (25-47); Mean Corpuscular HGB Conc 34 g/dl (31-36); Mean Corpuscular Hemoglobin 31 pg (27-31); Mean Corpuscular Volume 90 fL (80-94); Mean Platelet Volume 8 um3 (7.4-10.4); Nucleated Red Blood Cells % 0.1; Platelet Count 256 10^3/ul (150-450); Red Cell Distribution Width 16 % (10.5-15); White Blood Count 10.5 10^3/ul (3.5-10.8)
[2017-07-01 22:50] LABS: INR 0.94 (0.77-1.02)
[2017-07-01] MEDS ORDERED: NS 0.9% 1000 ML* 1,000 ML IV ONE (22:57)
[2017-07-01] MEDS ORDERED: NS 0.9% IVPB SCH (23:00)
[2017-07-01] MEDS ORDERED: D5W IVPB SCH (23:00)
[2017-07-01] MEDS ORDERED: NAFCILLIN IVPB SCH ×2 (23:00)
[2017-07-01] MEDS ORDERED: diPHENhydraMINE PO* 50 MG PO ONE (23:04)
[2017-07-01] MEDS ORDERED: LORazepam TAB(*) 1 MG PO ONE (23:42)
[2017-07-02] MEDS ORDERED: Vancomycin(*) 1,000 MG in NS 0.9% 250 ML* 250 ML IVPB ONE (00:23)
[2017-07-02] MEDS ORDERED: Al Hydrox/Mg Hydrox/Simet LIQ* 30 ML UDC PO PRN (00:41)
[2017-07-02] MEDS ORDERED: Ondansetron INJ* 2 MG/ML VIAL IV PRN (00:41)
[2017-07-02] MEDS ORDERED: Piperacillin/Tazobac ADVAN(*) 3.375 GM in NS 0.9% 100 ML* 100 ML IVPB ONE (00:43)
[2017-07-02] MEDS ORDERED: Morphine INJ* 4 MG/ML 1 ML CARPUJECT IV PRN (00:44)
[2017-07-02] MEDS ORDERED: LORazepam INJ* 2 MG/ML 1 ML VIAL IV PUSH PRN (00:44)
[2017-07-02] MEDS ORDERED: NS 0.9% 1000 ML* 1,000 ML IV ONE (00:45)
--- NOTE | 2017-07-02 00:47 | ED ---
Kae Mayes Thomas, scribed for Inder Lowry on 07/01/17 at 2208 . Skin Complaint - HPI Summary HPI Summary: This patient is a 26 year old M presenting to ED with a chief complaint of an abscess to the left forearm since last night. The pt states that he injected what he thought to be cocaine but was told afterwards that it was meth. His symptoms worsened this morning. The patient rates the pain 10/10 in severity. Symptoms aggravated by movement. Symptoms alleviated by nothing. Patient reports burning, redness on the left forearm. - History of Current Complaint Chief Complaint: EDRashSkinAbscess Time Seen by Provider: 07/01/17 21:44 Stated Complaint: ABSCESS ON LT ARM Hx Obtained From: Patient Onset/Duration: Started Days Ago, Still Present Skin Exposure Onset/Duration: Days Ago, Worse Since: - this morning Timing: Constant, Lasting Days Current Severity: Severe Pain Intensity: 10 Pain Scale Used: 0-10 Numeric Skin Location: Arm - L forearm Character: Swelling, Redness Aggravating Symptom(s): Other: - movement Alleviating Symptom(s): Nothing Associated Signs & Symptoms: Tenderness - Additional Pertinent History Primary Care Physician: [id number] - Allergy/Home Medications Allergies/Adverse Reactions: Allergies Allergy/AdvReac Type Severity Reaction Status Date / Time No Known Allergies Allergy Verified 03/11/17 14:32 PMH/Surg Hx/FS Hx/Imm Hx Endocrine/Hematology History: Denies: Hx Diabetes Cardiovascular History: Denies: Hx Hypertension, Hx Pacemaker/ICD, Other Cardiovascular Problems/ Disorders Respiratory History: Denies: Other Respiratory Problems/Disorders GI History: Denies: Hx Cirrhosis, Other GI Disorders History: Denies: Hx Renal Disease Musculoskeletal History: Reports: Hx Arthritis - LOW BACK, Hx Back Problems, Other Musculoskeletal History - REPORTS MISSING A DISC IN LOWER BACK Sensory History: Denies: Hx Contacts or Glasses, Hx Hearing Aid Opthamlomology History: Denies: Hx Contacts or Glasses Neurological History: Reports: Hx Migraine Denies: Other Neuro Impairments/Disorders Psychiatric History: Reports: Hx Inpatient Treatment - 2003 [facility], Hx of Violent Episodes Against Others - 2003, Hx Substance Abuse - iv opiates Denies: Hx Panic Disorder - Surgical History Surgery Procedure, Year, and Place: SINGLE WISDOM TOOTH EXTRACTION IN DENTAL OFFICE. 10/01/16 Rt RING FINGER - FX- SCREWS & WIRE Hx Anesthesia Reactions: No - Immunization History Date of Tetanus Vaccine: unk Infectious Disease History: No Infectious Disease History: Reports: Hx Hepatitis - HEP C Denies: History Other Infectious Disease, Traveled Outside the [place] in Last 30 Days - Family History Known Family History: Negative: Cardiac Disease, Hypertension - Social History Alcohol Use: Daily Alcohol Amount: 3-4+ PER DAY Substance Use Type: Reports: Cocaine, Marijuana, Prescribed Substance Use Comment - Amount & Last Used: occasional cocaine in the past, addicted to pain meds in the past, marijuan Smoking Status (MU): Current Every Day Smoker Type: Cigarettes Amount Used/How Often: 1 - 2 PPD Length of Time of Smoking/Using Tobacco: 13yrs Have You Smoked in the Last Year: Yes Review of Systems Negative: Fever Positive: Other - abscess to the L forearm All Other Systems Reviewed And Are Negative: Yes Physical Exam - Summary Physical Exam Summary: Appearance: Well appearing, no pain distress Skin: warm, dry, reflects adequate perfusion, redness and swelling at L forearm around the elbow (8x6 cm, tender, form and consistency) Head/face: normal Eyes: EOMI, BOUBACAR ENT: normal Neck: supple, non-tender Respiratory: CTA, breath sounds present Cardiovascular: RRR, pulses symmetrical Abdomen: non-tender, soft Bowel: present Musculoskeletal: normal, strength/ROM intact Neuro: normal, sensory motor intact, A&Ox3, no neurovascular deficits Triage Information Reviewed: Yes Vital Signs On Initial Exam: Initial Vitals Temp Pulse Resp BP Pulse Ox 98.6 F 115 18 169/105 99 07/01/17 21:25 07/01/17 21:25 07/01/17 21:25 07/01/17 21:25 07/01/17 21:25 Vital Signs Reviewed: Yes Diagnostics - Vital Signs Vital Signs Temp Pulse Resp BP Pulse Ox 07/01/17 21:25 98.6 F 115 18 169/105 99 - Laboratory Lab Results: Lab Results 07/01/17 07/01/17 07/01/17 Range/Units 22:11 22:11 22:11 WBC 10.5 (3.5-10.8) 10^3/ul RBC 4.90 (4.0-5.4) 10^6/ul Hgb 15.1 (14.0-18.0) g/dl Hct 44 (42-52) % MCV 90 (80-94) fL MCH 31 (27-31) pg MCHC 34 (31-36) g/dl RDW 16 H (10.5-15) % Plt Count 256 (150-450) 10^3/ul MPV 8 (7.4-10.4) um3 Neut % (Auto) 83.8 H (38-83) % Lymph % (Auto) 9.2 L (25-47) % Geary % (Auto) 6.6 (1-9) % Eos % (Auto) 0.1 (0-6) % Baso % (Auto) 0.3 (0-2) % Absolute Neuts (auto) 8.8 H (1.5-7.7) 10^3/ul Absolute Lymphs (auto) 1.0 (1.0-4.8) 10^3/ul Absolute Monos (auto) 0.7 (0-0.8) 10^3/ul Absolute Eos (auto) 0 (0-0.6) 10^3/ul Absolute Basos (auto) 0 (0-0.2) 10^3/ul Absolute Nucleated RBC 0 10^3/ul Nucleated RBC % 0.1 INR (Anticoag Therapy) 0.94 (0.77-1.02) APTT 31.0 (26.0-36.3) seconds Sodium 131 L (133-145) mmol/L Potassium 4.1 (3.5-5.0) mmol/L Chloride 98 L (101-111) mmol/L Carbon Dioxide 24 (22-32) mmol/L Anion Gap 9 (2-11) mmol/L BUN 12 (6-24) mg/dL Creatinine 1.00 (0.67-1.17) mg/dL Est GFR ( Amer) 114.4 (>60) Est GFR (Non-Af Amer) 89.0 (>60) BUN/Creatinine Ratio 12.0 (8-20) Glucose 102 H (70-100) mg/dL Calcium 10.2 (8.6-10.3) mg/dL Total Bilirubin 1.10 H (0.2-1.0) mg/dL AST 27 (13-39) U/L ALT 15 (7-52) U/L Alkaline Phosphatase 88 (34-104) U/L Total Protein 8.8 (6.4-8.9) g/dL Albumin 5.0 (3.2-5.2) g/dL Globulin 3.8 (2-4) g/dL Albumin/Globulin Ratio 1.3 (1-3) Result Diagrams: 07/01/17 22:11 07/01/17 22:11 Lab Statement: Any lab studies that have been ordered have been reviewed, and results considered in the medical decision making process. - Additional Comments Diagnostic Additional Comments: US soft tissue reveals complex fluid collection in the antecubital fossa subcutaneous fat corresponding to the area of abnormality. Finding may reflect abscess, hematoma, or complex seroma. ED physician has reviewed this radiology report. Course/Dx - Course Assessment/Plan: This patient is a 26 year old M presenting to ED with a chief complaint of an abscess to the left forearm since last night. Radiology included an US which reveals complex fluid collection in the antecubital fossa subcutaneous fat corresponding to the area of abnormality. Finding may reflect abscess, hematoma, or complex seroma. In the ED course the patient was given Nafcillin. Bloodwork was obtained. The patient is diagnosed with cellulitis, abscess in the left forearm and IVDU active. Dr. Barry was consulted who agreed to admit the patient and will call orthopedics in the morning for an I& D. Patient is agreeable with this plan. - Differential Diagnoses - Skin Complaint Differential Diagnoses: Abscess, Cellulitis, Lymphangitis - Diagnoses Provider Diagnoses: Cellulitis, Active intravenous drug use, Abscess of forearm, left - Physician Notifications Discussed Care Of Patient With: Saige Barry Time Discussed With Above Provider: 00:25 Instructed by Provider To: Admit As Inpatient Discharge - Discharge Plan Condition: Stable Disposition: ADMITTED TO [facility] documentation as recorded by the Kae lipscomb Thomas accurately reflects the service I personally performed and the decisions made by , Inder Lowry.
[2017-07-02] MEDS ORDERED: Zosyn per Pharmacy* NOTE FOLLOW UP SCH ×2 (01:00)
[2017-07-02] MEDS ORDERED: Vancomycin(*) 0 MG in NS 0.9% 250 ML* 250 ML IVPB SCH (01:00)
[2017-07-02] MEDS ORDERED: Vancomycin per Pharmacy* NOTE FOLLOW UP SCH (01:00)
--- NOTE | 2017-07-02 02:03 | HP ---
CC: Dr. Barcenas * HISTORY AND PHYSICAL: DATE OF ADMISSION: 07/02/17 PRIMARY CARE PHYSICIAN: Dr. Barcenas. TIME OF EVALUATION: 003. CHIEF COMPLAINT: Left upper extremity redness and swelling. HISTORY OF PRESENT ILLNESS: This is a 26-year-old male with a past medical history of IV drug use who presented to the emergency room with left upper extremity redness and swelling. The patient is in no distress, poor historian, likely secondary to distress and intoxication. He was told it was cocaine that he was injecting and he thinks it was meth. He has had 7 abscesses in total in the past, with a prior admission in the past as well that required I and D. He states he has been doing IV drugs for the past 8 years as well as mother is in the room, we had to ask her to leave as she is trying to answer everything for him. She states he is on probation and should not be injecting. He initially had issues with back pain, became addicted to pain medicine and became as a result an IV drug user. He denies any chest pain or shortness of breath. No nausea, vomiting, or diarrhea. No fevers or chills. Otherwise, review of systems is negative. PAST MEDICAL HISTORY: 1. History of multiple abscesses secondary to IV drug use. Admission in July 2015 for an abscess. 2. History of hepatitis C. 3. History of back pain. MEDICATIONS: The patient is unsure if he takes any medications on a routine basis. ALLERGIES: No known drug allergies. FAMILY HISTORY: Unable to obtain. SOCIAL HISTORY: The patient lives alone. He smokes, but less than a pack per day for the past 10 to 12 years. No alcohol use and as mentioned IV drug use. He is unemployed, on disability. His healthcare proxy is his mother. Code status is full code. REVIEW OF SYSTEMS: Limited due to the patient's distress and intoxication. PHYSICAL EXAMINATION GENERAL: Some mild distress due to pain, discomfort, and intoxication. VITAL SIGNS: Temp 98.6, pulse rate 115, respiratory rate 20, oxygen saturation 100% on room air, and blood pressure 145/93. HEENT: Head normocephalic. Pupils, limited exam due to the patient being uncooperative. Conjunctivae are injected. Unable to appreciate . RESPIRATORY: Diminished breath sounds. No wheezes, rhonchi, or rales. CARDIAC: Tachycardia. No murmurs, rubs, or gallops. ABDOMEN: Soft, nontender, and nondistended. EXTREMITIES: No clubbing, cyanosis, or edema. DERM: The patient with significant erythema in the anterior cubital and inferior mid arm region with erythema, fluctuance, and tenderness. He has multiple track frost on his upper and lower extremities with scabs and excoriation scattered throughout in his extremities. NEUROLOGIC: The patient is alert and oriented to himself and place. No gross focal neurologic deficits. He does seem disoriented at times and able to follow commands at times. LABORATORY DATA: White count 10.5, hemoglobin 15.1, hematocrit 44, and platelets 256,000. INR is 0.94. Sodium 131, potassium 4.1, chloride 98, bicarb 24, BUN 12, creatinine 1. IMAGING: Ultrasound of the extremities shows 3.1 x 0.5 x 2.9 complex subcutaneous fluid collection in the area of the swelling. The finding may reflect hematoma, seroma, or possibly early abscess. ASSESSMENT/PLAN: This is a 26-year-old male with a past medical history of IV drug use who presents to the emergency room with left upper extremity pain, redness, and swelling, found to have cellulitis and/or likely early abscess. 1. Cellulitis and likely early abscess in the left upper extremity. Assessment: The patient was needing vanco and Zosyn on his last admission. He has been MRSA positive in the past. Plan: We will keep him n.p.o., IV fluids, pain control, give him Ativan as well. We will add Zosyn and continue him on vanco. We will contact Surgery in the morning to discuss possible I and D. 2. FEN. Keep the patient n.p.o. for possible I and D as it is complex. As such, he may need sedation. We will keep IV fluids going. 3. DVT prophylaxis. The patient's score is 0. We will encourage ambulation. 4. Disposition. The patient is on probation and IV drug use. We will consult social work. TIME SPENT: Greater than 60 minutes spent doing the history and physical, more than half the time was spent in direct patient contact. [id number]/[facility] #: [id number] [facility] HOSPITALSandi
[2017-07-02] MEDS: NS 0.9% 1000 ML* 1,000 ML IV SCH ×3 (06:01→19:26)
--- NOTE | 2017-07-02 07:50 | RAD ---
HISTORY: Swollen antecubital fossa, abscess left forearm COMPARISONS: August 03, 2014 TECHNIQUE: Possible transverse and longitudinal ultrasound images were obtained of the area of swelling of the left occipital fossa using grayscale, color Doppler imaging, and spectral Doppler imaging. FINDINGS: There is trace edema. There is a heterogeneously hypoechoic loculated fluid collection measuring 3.1 x 0.5 x 2.9 cm in size in the area of swelling. The adjacent veins demonstrate normal flow on spectral Doppler imaging. IMPRESSION: COMPLEX FLUID COLLECTION WITHIN THE AREA OF SWELLING OF THE LEFT OCCIPITAL FOSSA MEASURING UP TO 3.1 CM IN SIZE. THE DIFFERENTIAL INCLUDES HEMATOMA VERSUS ABSCESS.
[2017-07-02] MEDS: Vancomycin(*) 1,000 MG in NS 0.9% 250 ML* 250 ML IVPB SCH ×2 (08:10→19:20)
[2017-07-02] MEDS: Piperacillin/Tazobactam 13.5 GM IV 24 hour continuous infusion IVPB SCH ×2 (08:10)
[2017-07-02] MEDS ORDERED: Acetaminophen TAB* 325 MG PO PRN (08:18)
[2017-07-02] MEDS ORDERED: Thiamine IV* 100 MG/ML 2 ML VIAL IM ONE (08:18)
[2017-07-02] MEDS: Folic Acid TAB* 1 MG PO SCH (08:36)
[2017-07-02] MEDS: Thiamine TAB* 100 MG TAB PO SCH (08:36)
[2017-07-02] MEDS: Multivitamins/Minerals TAB PO SCH (08:36)
[2017-07-02] MEDS: LORazepam INJ* 2 MG/ML 1 ML VIAL IM SCH ×6 (08:38→17:11)
--- NOTE | 2017-07-02 09:07 | PN ---
Hospitalist Progress Note Date of Service: 07/02/17
--- NOTE | 2017-07-02 11:16 | PN ---
Hospitalist Progress Note Date of Service: 07/02/17 Mr. Go has become combative and has been having hallucinations despite ativan in the [facility] protocol. Will transfer to ICU for acute alcohol withdrawal and treat with ativan drip. Continue thiamine/folate.
[2017-07-02] MEDS ORDERED: LORazepam INJ* 2 MG/ML 1 ML VIAL IV PUSH ONE ×2 (11:46→16:30)
[2017-07-02] MEDS ORDERED: LORazepam VIAL (for drip)* 100 MG in D5W 50 ML BAG* 50 ML IVPB SCH ×4 (12:00)
[2017-07-02] MEDS ORDERED: LORazepam PREMIX BAG 1MG/ML* 100 MG/100 ML BAG IVPB SCH ×2 (12:00→16:00)
--- NOTE | 2017-07-02 14:37 | PN ---
Hospitalist Progress Note Date of Service: 07/02/17 Seen in ICU7 with RN and his mother, Renuka at bedside (Renuka's number is ). He is now sedated after another push of 6mg ativan for his WAM score, but remains tachycardic and tachypneic. His mother reports that alcohol abuse is fairly recent for him over the past few months, and also that he has been using heroin that has been mixed with unknown other substances. I explained the importance of treating alcohol withdrawal aggressively and close monitoring. Ativan drip is on hold for now until he awakens. Then we will resume the WAM protocol and only resume the drip if needed.
--- NOTE | 2017-07-02 16:59 | PN ---
Hospitalist Progress Note Date of Service: 07/02/17 Response team called for aggression and combativeness, trying to get out of bed. When I arrived, he was fighting the security guards, hallucinating, and did not remember me. He was speaking nonsensibly, was tachycardic and tachypneic. Ativan 6mg IV was pushed from the drip, and it was increased to a rate of 8mg/hr. A/P: He continues to show signs of etoh withdrawal and needs more benzodiazepine. He is now alert and communicative but calm and cooperative. Will continue ativan drip, wam protocol, and continue to monitor closely.
--- NOTE | 2017-07-02 17:10 | PN ---
Progress Note - Progress Note Date of Service: 07/02/17 Note: Procedure Note: Patient examined at bedside earlier today. He has been non-coherent, combative at times, on Ativan for DT control. Discussed proceeding with I&D of left forearm abscess, consent obtained. Antecubital area of left upper extremity cleansed with Betadine solution and draped in a sterile fashion. Approx. 10cc of 1% plain Lidocaine was infilterated , then using a number 15 blade, small incision was made. Scanty amount of thick bloody discharge was noted, cultures obtained. Wound was then packed with 1/2 inch plain packing gauze. Patient tolerated procedure well.
[2017-07-02] MEDS: Haloperidol INJ IV/IM* 5 MG/ML AMP IV SLOW PU PRN (17:15)
[2017-07-02] MEDS ORDERED: Haloperidol INJ IV/IM* 5 MG/ML AMP ONE (17:36)
[2017-07-02] MEDS: Clindamycin 600 MG IVPREMIX(* 600 MG/50 ML SDV IV SCH (20:22)
[2017-07-02] MEDS ORDERED: Ziprasidone IM INJ* 20 MG/ML VIAL IM PRN (21:11)
[2017-07-02] MEDS: LORazepam INJ* 2 MG/ML 1 ML VIAL IV PUSH PRN (22:25)
[2017-07-03] MEDS ORDERED: LORazepam VIAL (for drip)* 100 MG in D5W 50 ML BAG* 50 ML IVPB SCH ×2 (02:00→09:00)
[2017-07-03] MEDS: NS 0.9% 1000 ML* 1,000 ML IV SCH (02:07)
[2017-07-03] MEDS: Clindamycin 600 MG IVPREMIX(* 600 MG/50 ML SDV IV SCH ×4 (03:25→19:42)
--- NOTE | 2017-07-03 03:41 | PN ---
Progress Note - Progress Note Date of Service: 07/03/17 Note: Weaned off ativan drip. Ativan, Fentanyl and geodon ordered prn.
[2017-07-03] MEDS: LORazepam INJ* 2 MG/ML 1 ML VIAL IV PUSH PRN ×3 (04:16→17:26)
[2017-07-03 06:46] LABS: ABS Basophils 0 10^3/ul (0-0.2); ABS Eosinophils 0 10^3/ul (0-0.6); ABS Lymphocytes 1.1 10^3/ul (1.0-4.8); ABS Monocytes 0.6 10^3/ul (0-0.8); ABS Neutrophils 6.3 10^3/ul (1.5-7.7); ABS Nucleated RBC 0 10^3/ul; Eosinophil % 0.4 % (0-6); Hematocrit 37 % (42-52); Hemoglobin 12.7 g/dl (14.0-18.0); Lymphocyte % 13.3 % (25-47); Mean Corpuscular HGB Conc 35 g/dl (31-36); Mean Corpuscular Hemoglobin 31 pg (27-31); Mean Corpuscular Volume 91 fL (80-94); Mean Platelet Volume 8 um3 (7.4-10.4); Nucleated Red Blood Cells % 0; Platelet Count 184 10^3/ul (150-450); Red Blood Count 4.05 10^6/ul (4.0-5.4); Red Cell Distribution Width 16 % (10.5-15)
[2017-07-03 07:25] LABS: EGFR Non-African American 108.8 (>60)
[2017-07-03] MEDS ORDERED: Vancomycin Trough Check NOTE FOLLOW UP ONE (08:30)
[2017-07-03] MEDS: Folic Acid TAB* 1 MG PO SCH (09:17)
[2017-07-03] MEDS: fentaNYL* 50 MCG/ML 2 ML VIAL (100 MCG VIAL) IV SLOW PU PRN ×2 (09:17→19:56)
[2017-07-03] MEDS: Multivitamins/Minerals TAB PO SCH (09:17)
[2017-07-03] MEDS: Thiamine TAB* 100 MG TAB PO SCH (09:17)
[2017-07-03] MEDS: Piperacillin/Tazobactam 13.5 GM IV 24 hour continuous infusion IVPB SCH ×2 (09:21)
[2017-07-03] MEDS: ZEPATIER PO SCH (10:48)
[2017-07-03] MEDS: VITAMIN B1 100 MG PO SCH ×3 (11:08→23:29)
[2017-07-03] MEDS: Nicotine PATCH 21 MG/24 HR* PATCH TRANSDERM SCH ×2 (13:22→14:01)
[2017-07-03] MEDS: Gabapentin CAP(*) 300 MG PO SCH ×2 (13:26→19:55)
--- NOTE | 2017-07-03 14:12 | PN ---
Subjective Date of Service: 07/03/17 Interval History: Ativan drip weaned off overnight. RN reports cooperation from him this morning. He has no recollection of yesterday's events. He denies pain, nausea , headaches, hallucinations. Family History: Unchanged from Admission Social History: Unchanged from Admission Past Medical History: Unchanged from Admission Objective Active Medications: Acetaminophen (Tylenol Tab*) 650 mg PO Q4H PRN PRN Reason: PAIN Last Admin: 07/03/17 10:43 Dose: 650 mg Al Hydrox/Mg Hydrox/Simethicone (Maalox Plus*) 30 ml PO Q6H PRN PRN Reason: INDIGESTION Fentanyl Citrate (Fentanyl*) 50 mcg IV SLOW PU Q4H PRN PRN Reason: PAIN Last Admin: 07/03/17 09:17 Dose: 50 mcg Folic Acid (Folvite Tab*) 1 mg PO DAILY [facility] Last Admin: 07/03/17 09:17 Dose: 1 mg Gabapentin (Neurontin Cap(*)) 600 mg PO TID [facility] Last Admin: 07/03/17 13:26 Dose: Not Given Haloperidol Lactate (Haldol Inj Iv/Im*) 5 mg IV SLOW PU Q6H PRN PRN Reason: AGITATION Last Admin: 07/02/17 17:15 Dose: 5 mg Sodium Chloride (Ns 0.9% 1000 Ml*) 1,000 mls @ 150 mls/hr IV PER RATE [facility] Last Admin: 07/03/17 02:07 Dose: 150 mls/hr Piperacillin Sod/Tazobactam (Sod 13.5 gm/ Sodium Chloride) 500 mls @ 20.833 mls /hr IVPB Q24H [facility] Last Admin: 07/03/17 09:21 Dose: 20.833 mls/hr Clindamycin HCl/Dextrose (Cleocin 600 Mg Ivpremix(*) Sdv) 600 mg in 50 mls @ 100 mls/hr IV Q8H [facility] Last Admin: 07/03/17 12:23 Dose: 100 mls/hr Lorazepam (Ativan Inj*) 1 mg IV PUSH Q4HR PRN PRN Reason: ANXIETY Last Admin: 07/02/17 03:22 Dose: 1 mg Lorazepam (Ativan Inj*) 0 - [address] [facility] PROTOCOL [facility] PRN Reason: Protocol Last Admin: 07/02/17 17:11 Dose: 4 mg Lorazepam (Ativan Inj*) 4 mg IV PUSH Q4H PRN PRN Reason: AGITATION Last Admin: 07/03/17 07:51 Dose: 4 mg Multivitamins/Minerals (Theragran/Minerals Tab*) 1 tab PO DAILY [facility] Last Admin: 07/03/17 09:17 Dose: 1 tab Nicotine (Nicotine Patch 21 Mg/24 Hr*) 1 patch TRANSDERM DAILY@0800 [facility] Last Admin: 07/03/17 14:01 Dose: Not Given Pto:Vitamin B1 100mg (Tabs) 1 dose PO TID [facility] Last Admin: 07/03/17 13:22 Dose: 1 dose Pto:Zepatier ( Elbasvir And Grazoprevir) 50mg/100mg Tab 1 dose PO DAILY [facility] Last Admin: 07/03/17 10:48 Dose: 1 dose Ondansetron HCl (Zofran Inj*) 4 mg IV Q4H PRN PRN Reason: NAUSEA/VOMITING Pharmacy Profile Note (Nicotine Patch Removal Note*) 1 note PATCH OFF 2100 [facility] Ziprasidone (Geodon Im Inj*) 10 mg IM Q6HR PRN PRN Reason: AGITATION Vital Signs - 8 hr 07/03/17 07/03/17 07/03/17 06:30 06:31 07:00 Temperature Pulse Rate 82 82 81 Respiratory 24 25 24 Rate Blood Pressure 125/68 123/70 (mmHg) O2 Sat by Pulse 98 98 98 Oximetry 07/03/17 07/03/17 07/03/17 07:01 07:30 07:31 Temperature Pulse Rate 83 76 79 Respiratory 24 21 23 Rate Blood Pressure 142/74 (mmHg) O2 Sat by Pulse 98 99 99 Oximetry 07/03/17 07/03/17 07/03/17 07:51 08:00 08:01 Temperature 98.3 F Pulse Rate Respiratory 26 34 29 Rate Blood Pressure 131/74 (mmHg) O2 Sat by Pulse Oximetry 07/03/17 07/03/17 07/03/17 08:30 08:31 09:00 Temperature Pulse Rate 78 90 Respiratory 27 19 23 Rate Blood Pressure 126/60 118/77 (mmHg) O2 Sat by Pulse 96 98 Oximetry 07/03/17 07/03/17 07/03/17 09:01 09:17 09:30 Temperature Pulse Rate Respiratory 19 16 15 Rate Blood Pressure 122/96 (mmHg) O2 Sat by Pulse Oximetry 07/03/17 07/03/17 07/03/17 09:31 09:58 10:00 Temperature Pulse Rate 106 105 Respiratory 26 19 11 Rate Blood Pressure 133/85 (mmHg) O2 Sat by Pulse 98 98 Oximetry 07/03/17 07/03/17 07/03/17 10:01 11:00 13:00 Temperature 97.6 F Pulse Rate 100 88 Respiratory 14 15 18 Rate Blood Pressure 140/76 133/72 (mmHg) O2 Sat by Pulse 99 100 Oximetry 07/03/17 13:26 Temperature Pulse Rate Respiratory 15 Rate Blood Pressure (mmHg) O2 Sat by Pulse Oximetry Oxygen Devices in Use Now: None Appearance: alert and resting calmly in bed Eyes: No Scleral Icterus Ears/Nose/Mouth/Throat: NL Teeth, Lips, Gums Neck: NL Appearance and Movements; NL JVP Respiratory: Symmetrical Chest Expansion and Respiratory Effort Cardiovascular: NL Sounds; No Murmurs; No JVD, RRR Abdominal: NL Sounds; No Tenderness; No Distention Lymphatic: No Cervical Adenopathy Extremities: - - LUE incision packed, some oozing Neurological: - - disoriented and occasionally answers questions nonsensibly, but much clearer sensorium today Result Diagrams: 07/03/17 05:57 07/03/17 05:57 Additional Lab and Data: Lab Results 07/01/17 07/01/17 07/01/17 Range/Units 22:11 22:11 22:11 WBC 10.5 (3.5-10.8) 10^3/ul RBC 4.90 (4.0-5.4) 10^6/ul Hgb 15.1 (14.0-18.0) g/dl Hct 44 (42-52) % MCV 90 (80-94) fL MCH 31 (27-31) pg MCHC 34 (31-36) g/dl RDW 16 H (10.5-15) % Plt Count 256 (150-450) 10^3/ul MPV 8 (7.4-10.4) um3 Neut % (Auto) 83.8 H (38-83) % Lymph % (Auto) 9.2 L (25-47) % Kay % (Auto) 6.6 (1-9) % Eos % (Auto) 0.1 (0-6) % Baso % (Auto) 0.3 (0-2) % Absolute Neuts (auto) 8.8 H (1.5-7.7) 10^3/ul Absolute Lymphs (auto) 1.0 (1.0-4.8) 10^3/ul Absolute Monos (auto) 0.7 (0-0.8) 10^3/ul Absolute Eos (auto) 0 (0-0.6) 10^3/ul Absolute Basos (auto) 0 (0-0.2) 10^3/ul Absolute Nucleated RBC 0 10^3/ul Nucleated RBC % 0.1 INR (Anticoag Therapy) 0.94 (0.77-1.02) APTT 31.0 (26.0-36.3) seconds Sodium 131 L (133-145) mmol/L Potassium 4.1 (3.5-5.0) mmol/L Chloride 98 L (101-111) mmol/L Carbon Dioxide 24 (22-32) mmol/L Anion Gap 9 (2-11) mmol/L BUN 12 (6-24) mg/dL Creatinine 1.00 (0.67-1.17) mg/dL Est GFR ( Amer) 114.4 (>60) Est GFR (Non-Af Amer) 89.0 (>60) BUN/Creatinine Ratio 12.0 (8-20) Glucose 102 H (70-100) mg/dL Calcium 10.2 (8.6-10.3) mg/dL Total Bilirubin 1.10 H (0.2-1.0) mg/dL AST 27 (13-39) U/L ALT 15 (7-52) U/L Alkaline Phosphatase 88 (34-104) U/L Total Protein 8.8 (6.4-8.9) g/dL Albumin 5.0 (3.2-5.2) g/dL Globulin 3.8 (2-4) g/dL Albumin/Globulin Ratio 1.3 (1-3) Microbiology and Other Data: Microbiology 07/02/17 16:00 Gram Stain - Final Arm Left Wound Culture - Preliminary No Growth Day 1 07/02/17 02:18 Nasal Screen MRSA (PCR)([facility]) - Final Nasal Mrsa Not Detected Assess/Plan/Problems-Billing Assessment: - Patient Problems (1) Alcohol withdrawal delirium, acute, hyperactive Current Visit: Yes Status: Acute Code(s): F10.231 - ALCOHOL DEPENDENCE WITH WITHDRAWAL DELIRIUM SNOMED Code(s): 3256692 Comment: Ativan drip weaned off overnight, hallucinations are improved today. Continue folate/thiamine/MVI and PRN ativan. Transfer to floor today. (2) Substance abuse Current Visit: Yes Status: Acute Code(s): F19.10 - OTHER PSYCHOACTIVE SUBSTANCE ABUSE, UNCOMPLICATED SNOMED Code(s): 29210191 Comment: I suspect tainted heroin contributed to his behavior yesterday. He denies PCP, K2, spice, etc. but did buy some cocaine that may have been laced with something else. I discussed rehab with him, and he is not interested in going upon discharge. (3) Abscess Current Visit: Yes Status: Acute Code(s): L02.91 - CUTANEOUS ABSCESS, UNSPECIFIED SNOMED Code(s): 407162849 Comment: s/p I&D yesterday; continue clindamycin for surrounding cellulitis
[2017-07-03] MEDS: Haloperidol INJ IV/IM* 5 MG/ML AMP IV SLOW PU PRN (17:40)
[2017-07-03] MEDS ORDERED: Nicotine Patch Removal NOTE PATCH OFF SCH (21:00)
[2017-07-04] MEDS: Clindamycin 600 MG IVPREMIX(* 600 MG/50 ML SDV IV SCH ×2 (03:31→12:16)
[2017-07-04] MEDS: NS 0.9% 1000 ML* 1,000 ML IV SCH ×2 (04:20→12:17)
[2017-07-04] MEDS: Nicotine PATCH 21 MG/24 HR* PATCH TRANSDERM SCH (08:07)
[2017-07-04] MEDS: Piperacillin/Tazobactam 13.5 GM IV 24 hour continuous infusion IVPB SCH ×2 (08:07)
[2017-07-04] MEDS: Multivitamins/Minerals TAB PO SCH (08:11)
[2017-07-04] MEDS: VITAMIN B1 100 MG PO SCH ×2 (08:11→14:30)
[2017-07-04] MEDS: ZEPATIER PO SCH (08:11)
[2017-07-04] MEDS: Folic Acid TAB* 1 MG PO SCH (08:11)
[2017-07-04] MEDS: Gabapentin CAP(*) 300 MG PO SCH ×2 (08:11→14:31)
--- NOTE | 2017-07-04 08:49 | RAD ---
INDICATION: Delirium COMPARISON: None TECHNIQUE: Noncontrast axial source images were acquired from the skull base to the vertex. FINDINGS: Ventricles/sulci: The ventricles and cisterns are normal in size and configuration for age. Brain parenchyma: There is no focal parenchymal finding, evidence of intracranial mass, or intracranial mass effect. Intracranial hemorrhage:None. Extra-axial spaces: There are no abnormal extra axial fluid collections or evidence of extra-axial mass. Calvarium: There is no calvarial fracture or other calvarial abnormality. Scalp: There is no evidence of scalp or extracalvarial soft tissue abnormality. Paranasal sinuses/mastoid: The paranasal sinuses and mastoid air cells are clear. Other: None. IMPRESSION: NEGATIVE EXAMINATION
[2017-07-04] MEDS: Thiamine IV* 500 MG in NS 0.9% 250 ML* 250 ML IV SCH ×2 (09:58→14:31)
[2017-07-04] MEDS: Thiamine IV* 100 MG/ML 2 ML VIAL IV SCH ×2 (09:59→14:36)
--- NOTE | 2017-07-04 11:46 | PN ---
Progress Note - Progress Note Date of Service: 07/04/17 SOAP: Subjective: Patient seen and examined at bedside. Feeling better, more coherent, denies any arm pain. Packing had fallen off, minimal drainage. Objective: Awake and alert, feels sleepy, but answers questions appropriately VSS, afebrile L upper extremity with significant improvement to erythema and induration at antecubital area. I&D site with scanty straw colored discharge, no bleeding. No tenderness or exam, slight warmth to touch. Radial pulse 2+ Assessment: Resolving left arm cellulitis, s/p I&D of LUE abscess Plan: Cultures reviewed, no growth 2 days Continue Abx per medicine No more packing needed, just dry dressing and Kerlex around arm. D/C plans per medicine
[2017-07-04] MEDS: fentaNYL* 50 MCG/ML 2 ML VIAL (100 MCG VIAL) IV SLOW PU PRN (12:16)
[2017-07-04 14:03] VITALS: BP 132/63
== END 2017-07-04 17:35 | disposition home or self-care (01) | DRG 580 ==
LOC: ED 21:23 → MED 07-02 00:41 → ICU 07-02 11:11 → MED 07-03 12:59
PROVIDERS: ADMIT Pediatrics; ATTEND Internal Medicine
PROC: 0J9H0ZZ Drainage of Left Lower Arm Subcutaneous Tissue and Fascia, Open Approach (ICD-10-PCS; principal; 2017-07-02)
DX: L02.414 Cutaneous abscess of left upper limb (principal); F10.231 Alcohol dependence with withdrawal delirium; L03.114 Cellulitis of left upper limb; Y90.0 Blood alcohol level of less than 20 mg/100 ml; F11.10 Opioid abuse, uncomplicated
CPT/HCPCS: 36415; 70450; 80053; 80307; 80320; 80324; 80346; 80349; 80353; 80359; 80364; 83735; 84100; 85025; 85610; 85652; 85730; 86140; 87040; 87070; 87205; 87641; 93005; 99284; 99406; A9270-GY; G0480; J1630; J2060; J2270; J2543; J3010; J3370; J3411; J3486

== ENCOUNTER 2019-02-03 13:37 | Emergency (ER) | payer MEDICARE, MEDICAID ==
[2019-02-03 13:56] VITALS: BP 143/96
--- NOTE | 2019-02-03 15:00 | UC ---
Skin Complaint HPI - HPI Summary HPI Summary: 28-year-old male presents with redness and swelling to his right forearm. Patient is a past IV drug user who states that he has been clean since June 2017 but relapsed 4 days ago because of a lot of stress in his life. States he was injecting oxymorphone 4 days ago but has not used since that time. States the redness to his forearm started yesterday and has progressively worsened over the last 24 hours. States is only mildly painful. Reports feels well otherwise. Denies any fever or chills. Patient has a history of MRSA in the past, has had multiple abscesses, and has been admitted on 2 separate occasions for abscesses that required I&D as well as coverage with broad-spectrum antibiotics with the most recent admission being on 07/02/2017. - History of Current Complaint Chief Complaint: UCSkin Time Seen by Provider: 02/03/19 14:13 Stated Complaint: RED AREA ON ARM Hx Obtained From: Patient Pain Intensity: 2 - Allergy/Home Medications Allergies/Adverse Reactions: Allergies Allergy/AdvReac Type Severity Reaction Status Date / Time No Known Allergies Allergy Verified 02/03/19 13:56 Home Medications: Home Medications Baclofen 1 tab PO DAILY 02/03/19 [History Confirmed 02/03/19] Quetiapine Fumarate [Seroquel 50 mg tab] 1 tab PO DAILY 02/03/19 [History Confirmed 02/03/19] PMH/Surg Hx/FS Hx/Imm Hx - Additional Past Medical History Additional PMH: MRSA GI/ History: Other - Chronic Hep C - Surgical History Surgical History: Yes Surgery Procedure, Year, and Place: SINGLE WISDOM TOOTH EXTRACTION IN DENTAL OFFICE. 10/01/16 Rt RING FINGER - FX- SCREWS & WIRE - Family History Known Family History: Positive: Non-Contributory - Social History Occupation: Unemployed Lives: With Family Alcohol Use: Daily Alcohol Amount: 3-4+ PER DAY Substance Use Type: Cocaine, Marijuana, Synthetic Drugs, Prescribed Substance Use Comment - Amount & Last Used: occasional cocaine in the past, addicted to pain meds in the past, marijuan Smoking Status (MU): Heavy Every Day Tobacco Smoker Type: Cigarettes Amount Used/How Often: 1 - 2 PPD Length of Time of Smoking/Using Tobacco: 13yrs Have You Smoked in the Last Year: Yes Household Exposure Type: Cigarettes - Immunization History Most Recent Influenza Vaccination: 2013 Most Recent Tetanus Shot: up to date Most Recent Pneumonia Vaccination: never Review of Systems All Other Systems Reviewed And Are Negative: Yes Constitutional: Negative: Fever, Chills Skin: Positive: Other - See HPI Respiratory: Positive: Negative Cardiovascular: Positive: Negative Gastrointestinal: Positive: Negative Genitourinary: Positive: Negative Motor: Positive: Negative Musculoskeletal: Positive: Negative Neurological: Positive: Negative Is Patient Immunocompromised?: No Physical Exam - Summary Physical Exam Summary: GENERAL APPEARANCE: Alert and cooperative adult male who appears to be in no acute distress. NECK: Neck supple, non-tender without lymphadenopathy. CARDIAC: Normal S1 and S2. No S3, S4 or murmurs. Rhythm is regular. There is no peripheral edema, cyanosis or pallor. Extremities are warm and well perfused. Capillary refill is less than 2 seconds. Peripheral pulses intact. LUNGS: Clear to auscultation without rales, rhonchi, wheezing or diminished breath sounds. ABDOMEN: Positive bowel sounds. Soft, nondistended, nontender. No guarding or rebound. No masses or hepatosplenomegally. MUSKULOSKELETAL: ROM intact to all extremities. No joint erythema or tenderness. Normal muscular development. Normal gait. EXTREMITIES: 4 cm x 6 cm area of erythema and induration noted to mid right anterior forearm without any fluctuance. Mild increased warmth. SKIN: Skin normal color, texture and turgor. Multiple injection sites noted to bilateral forearms. Triage Information Reviewed: Yes Vital Signs: Initial Vital Signs Temp 98.5 F 02/03/19 13:53 Pulse 96 02/03/19 13:53 Resp 18 02/03/19 13:53 BP 143/96 02/03/19 13:53 Pulse Ox 100 02/03/19 13:53 Vital Signs Reviewed: Yes Images Front/Back of Body, Lg (Dyer): 1 - 4 cm x 6 cm area of erythema with induration and no fluctuance Course/Dx - Course Course Of Treatment: 28-year-old male presents with redness and swelling to his right forearm. Patient is a past IV drug user who states that he has been clean since June 2017 but relapsed 4 days ago because of a lot of stress in his life. States he was injecting oxymorphone 4 days ago but has not used since that time. States the redness to his forearm started yesterday and has progressively worsened over the last 24 hours. States is only mildly painful. Reports feels well otherwise. Denies any fever or chills. Patient has a history of MRSA in the past, has had multiple abscesses, and has been admitted on 2 separate occasions for abscesses that required I&D as well as coverage with broad-spectrum antibiotics with the most recent admission being on 07/02/2017. Afebrile. Hypertensive otherwise vital signs stable. He should have a 4 cm x 6 cm area of erythema and induration noted to mid right anterior forearm without any fluctuance, mild increased warmth, and otherwise unremarkable exam. I reviewed the records from his last admission for abscess. He did have an I&D at that time and the Gram stain and culture showed no growth in his blood cultures remained negative. He was initially started on broad-spectrum antibiotics but was de-escalate to clindamycin after culture results returned. I discussed with the patient and with his history of previous admissions and MRSA and I would recommend he be evaluated emergency room at this time however patient states that he has appointments later this afternoon and tomorrow relating to his probation that he cannot miss. I reiterated that I strongly feel that he should be evaluated in the emergency room however I will start him on clindamycin 300 mg 3 times a day 10 days to treat for the infection with the understanding that he should have a very low threshold for being evaluated in the ER should his symptoms worsen at all. I strongly encouraged him to be reevaluated by his primary care provider in one to 2 days to ensure that the infection was improving. I reviewed warning symptoms that would require immediate evaluation in the emergency room. Patient verbalizes understanding and agrees with plan of care. - Differential Diagnoses - Skin Complaint Differential Diagnoses: Abscess, Cellulitis - Diagnoses Provider Diagnosis: Cellulitis of right forearm Discharge ED - Sign-Out/Discharge Documenting (check all that apply): Patient Departure All imaging exams completed and their final reports reviewed: No Studies - Discharge Plan Condition: Stable Disposition: HOME-RECOMMEND TO ED Prescriptions: Clindamycin HCl 300 mg PO TID #30 capsule Patient Education Materials: Cellulitis (ED), Polysubstance Abuse (ED) Referrals: Aaron Fairbanks NP [Primary Care Provider] - 1 Day Additional Instructions: Based on your past history of previous admissions for these types of infections I would recommend that you be evaluated in the emergency room at this time. I will provide you with a prescription for an antibiotic to start to treat the infection. Take clindamycin 300 mg 1 capsule three times a day for 10 days. Be sure to take the entire prescription even if feeling better. If you do not go to the emergency room today I would recommend that you follow up with your primary care provider in 1-2 days for a recheck of your infection. Seek immediate medical attention in the emergency room if you develop fever greater than 100.5 F, have severe pain in the arm, increased redness or swelling , or any worsening of symptoms. - Billing Disposition and Condition Condition: STABLE Disposition: Home-Recommend to ED - Attestation Statements Provider Attestation: This patient was not seen by me. I was available for consult. KENYETTA
== END 2019-02-03 15:09 | disposition home health service (06) ==
LOC: UCEAST 13:37
DX: L03.113 Cellulitis of right upper limb (principal); F17.210 Nicotine dependence, cigarettes, uncomplicated
CPT/HCPCS: 99212; G0463

== ENCOUNTER 2019-03-04 15:07 | Emergency (ER) | payer MEDICARE, MEDICAID ==
[2019-03-04 15:30] VITALS: BP 139/93
--- NOTE | 2019-03-04 15:32 | UC ---
Throat Pain/Nasal Josh HPI - HPI Summary HPI Summary: 28 yo male presents with cold symptoms. He tells me that over the last 4-5 days he has had sinus pain/pressure/congestion with productive cough with green/ brown sputum. He smokes daily and has a hx of asthma as a child. He had felt hot /cold, but has not taken his temperature. Denies SOB, chest pain, n/v. He has not been taking anything OTC for his symptoms. - History of Current Complaint Chief Complaint: UCGeneralIllness Stated Complaint: COLD SYMPTOMS Time Seen by Provider: 03/04/19 15:32 Hx Obtained From: Patient Onset/Duration: Gradual Onset Severity: Moderate Pain Intensity: 5 Pain Scale Used: 0-10 Numeric - Allergies/Home Medications Allergies/Adverse Reactions: Allergies Allergy/AdvReac Type Severity Reaction Status Date / Time No Known Allergies Allergy Verified 02/03/19 13:56 PMH/Surg Hx/FS Hx/Imm Hx Psychological History: Anxiety, Depression - Surgical History Surgical History: Yes Surgery Procedure, Year, and Place: SINGLE WISDOM TOOTH EXTRACTION IN DENTAL OFFICE. 10/01/16 Rt RING FINGER - FX- SCREWS & WIRE - Family History Known Family History: Positive: Non-Contributory - Social History Lives: With Family Alcohol Use: Occasionally Alcohol Amount: 3-4+ PER DAY Substance Use Type: Cocaine, Marijuana, Synthetic Drugs, Prescribed Substance Use Comment - Amount & Last Used: occasional cocaine in the past, addicted to pain meds in the past, marijuan Smoking Status (MU): Heavy Every Day Tobacco Smoker Type: Cigarettes Amount Used/How Often: 1 - 2 PPD Length of Time of Smoking/Using Tobacco: 13yrs Have You Smoked in the Last Year: Yes Household Exposure Type: Cigarettes - Immunization History Most Recent Influenza Vaccination: 2013 Most Recent Tetanus Shot: up to date Most Recent Pneumonia Vaccination: never Review of Systems All Other Systems Reviewed And Are Negative: No Constitutional: Positive: Fever Skin: Positive: Negative Eyes: Positive: Negative ENT: Positive: Nasal Discharge, Sinus Congestion, Sinus Pain/Tenderness Respiratory: Positive: Cough Cardiovascular: Positive: Negative Gastrointestinal: Positive: Negative Neurological: Positive: Negative Psychological: Positive: Negative Physical Exam - Summary Physical Exam Summary: GENERAL: NAD. WDWN. No pain distress. SKIN: No rashes, sores, lesions, or open wounds. HEENT: Head: AT/NC Eyes: Conjunctiva clear without inflammation or discharge. Ears: Hearing grossly normal. TMs intact, no bulging, erythema, or edema. Nose: Nasal mucosa mildly swollen and erythematous with yellow/ clear discharge. TTP maxillary and frontal sinus. Positive post nasal drip Throat: Posterior oropharynx without exudates, erythema, or tonsillar enlargement. Uvula midline. NECK: Supple. Nontender. No lymphadenopathy. CHEST: Moderate wheezing throughout. No r/r. No accessory muscle use. Breathing comfortably and in no distress. CV: RRR. Pulses intact. Cap refill <2seconds NEURO: Alert. PSYCH: Age appropriate behavior. Triage Information Reviewed: Yes Vital Signs: Initial Vital Signs Temp 98.7 F 03/04/19 15:23 Pulse 106 03/04/19 15:23 Resp 17 03/04/19 15:23 BP 139/93 03/04/19 15:23 Pulse Ox 96 03/04/19 15:23 Vital Signs Reviewed: Yes Diagnostics - Radiology CXR Radiology Interpretation Completed By: Radiologist Summary of Radiographic Findings: IMPRESSION: NO EVIDENCE FOR ACTIVE CARDIOPULMONARY DISEASE. Throat Pain/Nasal Course/Dx - Course Course Of Treatment: CXR as above. In the clinic pt was given a duoneb treatment with good relief of his cough and chest congestion. His lung sounds remarkable improved and has much less wheezing. Suspect bronchitis. - Differential Dx/Diagnosis Provider Diagnosis: Bronchitis Discharge ED - Sign-Out/Discharge Documenting (check all that apply): Patient Departure All imaging exams completed and their final reports reviewed: Yes - Discharge Plan Condition: Stable Disposition: HOME Prescriptions: Albuterol HFA INHALER* [Ventolin HFA Inhaler*] 1 puff INH Q6H PRN #1 mdi PRN Reason: Wheezing Amoxicillin/Clavulanate TAB* [Augmentin TAB 875*] 875 mg PO BID #14 tab predniSONE TAB* [Deltasone 20 MG TAB*] 40 mg PO DAILY #10 tab Patient Education Materials: Acute Bronchitis (ED) Forms: *Work Release Referrals: Aaron Fairbanks BO[employer] INSTALLER [Primary Care Provider] - Additional Instructions: If you develop a fever, shortness of breath, chest pain, new or worsening symptoms - please call your PCP or go to the ED immediately. Your blood pressure was high at todays visit. Please see your primary provider within 4 weeks for recheck and re-evaluation. - Billing Disposition and Condition Condition: STABLE Disposition: Home
[2019-03-04] MEDS ORDERED: Albuterol/Ipratropium NEB.SOL* Albuterol 2.5 MG/Ipratropium 0.5 MG 3 ML INH ONE (15:35)
== END 2019-03-04 16:15 | disposition home or self-care (01) ==
LOC: UCEAST 15:07
DX: J40 Bronchitis, not specified as acute or chronic (principal); R09.81 Nasal congestion; F17.210 Nicotine dependence, cigarettes, uncomplicated
CPT/HCPCS: 71046; 99212; A9270-GY; G0463

== ENCOUNTER 2019-05-15 23:28 | Emergency (ER) | payer MEDICARE, MEDICAID ==
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
[2019-05-15] MEDS ORDERED: Erythromycin OPTH OINT* APPLIC OINT LEFT EYE SCH (23:45)
[2019-05-15 23:57] LABS: ABS Lymphocytes 1.5 10^3/ul (1.0-4.8); ABS Monocytes 1.1 10^3/ul (0-0.8); Eosinophil % 0.3 %; Hematocrit 43 % (42-52); Hemoglobin 14.6 g/dL (14.0-18.0); Lymphocyte % 14.3 %; Mean Corpuscular HGB Conc 34 g/dL (31-36); Mean Corpuscular Hemoglobin 31 pg (27-31); Mean Corpuscular Volume 92 fL (80-94); Mean Platelet Volume 7.7 fL (7.4-10.4); Nucleated Red Blood Cells % 0.2; Platelet Count 251 10^3/uL (150-450); Red Blood Count 4.67 10^6 /uL (4.18-5.48); Red Cell Distribution Width 15 % (10-15); White Blood Count 10.7 10^3/uL (3.5-10.8)
[2019-05-16] MEDS ORDERED: NS 0.9% 1000 ML** 1,000 ML IV ONE (00:02)
[2019-05-16 00:16] LABS: ALT 194 U/L (7-52); AST 90 U/L (13-39); Albumin 4.4 g/dL (3.2-5.2); Albumin/Globulin Ratio 1.8 (1-3); Alkaline Phosphatase 73 U/L (34-104); Anion Gap 6 mmol/L (2-11); BUN/Creatinine Ratio 10.5 (8-20); Blood Urea Nitrogen 12 mg/dL (6-24); CO2 Carbon Dioxide 28 mmol/L (22-32); Chloride 105 mmol/L (101-111); EGFR African American 91.3 (>60); EGFR Non-African American 75.4 (>60); Globulin 2.5 g/dL (2-4); Glucose 97 mg/dL (70-100); Sodium 139 mmol/L (135-145); Total Protein 6.9 g/dL (6.4-8.9)
[2019-05-16 00:38] LABS: Alcohol < 10 mg/dL (<10)
[2019-05-16 05:38] VITALS: BP 138/89
== END 2019-05-16 05:38 | disposition home or self-care (01) ==
LOC: ED 23:28
DX: T50.991A Poisoning by other drugs, medicaments and biological substances, accidental (unintentional), initial encounter (principal); V48.5XXA Car driver injured in noncollision transport accident in traffic accident, initial encounter; Y92.410 Unspecified street and highway as the place of occurrence of the external cause; F17.210 Nicotine dependence, cigarettes, uncomplicated; Z79.899 Other long term (current) drug therapy
CPT/HCPCS: 36415; 71046; 80053; 80320; 85025; 93005; 96360; 99283; A9270-GY; G0480

== ENCOUNTER 2019-06-10 02:29 | Emergency (ER) | payer MEDICARE, MEDICAID ==
--- OUTSIDE RECORDS SUMMARY | 2019-06-10 02:35 | XMS REPORT | Continuity of Care Document ---
:1990 External Reference #:[id number] Author Name Clare Villegas O.D. 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 Onset: 05/18/2019 Poor sleep pattern Clare Villegas O.D. Onset: 05/18/2019 Chronic back pain Clare Villegas O.D. Onset: 05/18/2019 Injury of conjunctiva and corneal abrasion Clare Villegas O.D. Onset: without foreign body, left eye, initial encounter Open wound of eyeball Clare Villegas O.D. Onset: 05/18/2019 Injury of conjunctiva and corneal abrasion Clare Villegas O.D. Onset: without foreign body, right eye, subsequent encounter Social History Type Date Description Comments Sex Unknown ETOH Use Denies alcohol use Tobacco Use Start: Unknown Heavy tobacco smoker (more than 10 cigarettes/day) Recreational Drug Use Denies Drug Use Smoking Status Reviewed: 05/25/19 Heavy tobacco smoker (more than 10 cigarettes/day) Allergies, Adverse Reactions, Alerts Description No Known Drug Allergies Medications Active Medications SIG Qnty Indications Ordering Provider Date Erythromycin apply thin strip 1Tube S05.02xA Clare Lyman 05/18/2019 5mg/GM to left eye at [facility] Ointment bedtime Tobramycin-Dexamethaso 1 drop left eye 10ml S05.02xA Clare Lyman 05/18/2019 ne 4xday Tori Villegas 0.3-0.1% Suspension Gabapentin Unknown 600mg Tablets Baclofen TK 1/2 To 1 T PO Unknown 10mg Tablets Q 8 H If Needed For MSP Ranitidine HCL TK 1 T PO bid prn Unknown 150mg Tablets Naproxen Unknown 500mg Tablets Quetiapine Fumarate Aaron Fairbanks BONDING MACHINE SETTER 50mg Tablets History Medications Ofloxacin place 1 drop 10ml S05.02xA Clare Lyman 05/18/2019 - (Ophthalmic) into left eye Tori Villegas 05/18/2019 0.3% 4xday while Solution awake Immunizations Description No Information Available Vital Signs Description No Information Available Results Description No Information Available Procedures Date Code Description Status 05/18/2019 28691 New Patient Comprehensive Exam Completed Medical Devices Description No Information Available Encounters Type Date Location Provider Dx Diagnosis Office Visit 05/20/2019 Clare Rodriguez S05.01xD Inj conjunctiva and 2:20p , pc Tori Villegas corneal abrasion w/o fb, right eye, subs Assessments Date Code Description Provider 05/25/2019 S05.01xD Injury of conjunctiva and corneal Clare Villegas O.D. abrasion without foreign body, right eye, subsequent encounter 05/20/2019 S05.01xD Injury of conjunctiva and corneal Clare Villegas O.D. abrasion without foreign body, right eye, subsequent encounter 05/18/2019 S05.02xA Injury of conjunctiva and corneal Clare Villegas O.D. abrasion without foreign body, left eye, initial encounter 05/18/2019 S05.8x2A Other injuries of left eye and orbit, Clare Villegas O.D. initial encounter Plan of Treatment 05/25/2019 - Clare Villegas O.D.S05.01xD Injury of conjunctiva and corneal abrasion without foreign body, right eye, subsequent encounterComments:continue ointment at bedtime for 3 weeks continue drops 2x a day for 5 days, then 1x a day for 5 days, then stopFollow up:2 mos recheck cornea and vision Functional Status Description No Information Available Mental Status Description No Information Available Referrals Description No Information Available
--- OUTSIDE RECORDS SUMMARY | 2019-06-10 02:35 | XMS REPORT | Continuity of Care Document ---
:1990 External Reference #:[id number] Author Name Clare Villegas O.D. Address [address] [place] [address] Care Team Providers Name Role Phone Aaron Fairbanks BUILDING ADMIN - Nurse Practitioner Care Team Information Slab Installer [phone] Problems Active Problems Provider Date Acid reflux Clare Villegas O.D. Onset: 05/18/2019 Poor sleep pattern Clare Villegas O.D. Onset: 05/18/2019 Chronic back pain Clare Villegas O.D. Onset: 05/18/2019 Open wound of eyeball Clare Villegas O.D. Onset: 05/18/2019 Injury of conjunctiva and corneal abrasion Clare Villegas O.D. Onset: without foreign body, left eye, initial encounter Social History Type Date Description Comments Sex Unknown ETOH Use Denies alcohol use Tobacco Use Start: Unknown Heavy tobacco smoker (more than 10 cigarettes/day) Recreational Drug Use Denies Drug Use Smoking Status Reviewed: 05/18/19 Heavy tobacco smoker (more than 10 cigarettes/day) Allergies, Adverse Reactions, Alerts Description No Known Drug Allergies Medications Active Medications SIG Qnty Indications Ordering Provider Date Erythromycin apply thin strip 1Tube S05.02xA Clare Lyman 05/18/2019 5mg/GM to left eye at [facility] Ointment bedtime Tobramycin-Dexamethaso 1 drop left eye 10ml S05.02xA Clare Lyman 05/18/2019 ne 4xday Nelly O.Nikos 0.3-0.1% Suspension Gabapentin Unknown 600mg Tablets Baclofen TK 1/2 To 1 T PO Unknown 10mg Tablets Q 8 H If Needed For MSP Ranitidine HCL TK 1 T PO bid prn Unknown 150mg Tablets Naproxen Unknown 500mg Tablets History Medications Ofloxacin place 1 drop 10ml S05.02xA Clare Lyman 05/18/2019 - (Ophthalmic) into left eye Tori Villegas 05/18/2019 0.3% 4xday while Solution awake Immunizations Description No Information Available Vital Signs Description No Information Available Results Description No Information Available Procedures Description No Information Available Medical Devices Description No Information Available Encounters Description No Information Available Assessments Date Code Description Provider 05/18/2019 S05.02xA Injury of conjunctiva and corneal Clare Villegas O.D. abrasion without foreign body, left eye, initial encounter 05/18/2019 S05.8x2A Other injuries of left eye and orbit, Clare Villegas O.D. initial encounter Plan of Treatment 05/18/2019 - Clare Villegas O.D.S05.02xA Injury of conjunctiva and corneal abrasion without foreign body, left eye, initial encounterNew Medication: Erythromycin 5 mg/GM - apply thin strip to left eye at bedtimeTobramycin- Dexamethasone 0.3-0.1 % - 1 drop left eye 4xdayOfloxacin (Ophthalmic) 0.3 % - place 1 drop into left eye 4xday while awakeComments:start erythromycin ointment at bedtime left eyestart tobradex drop 4xday left eyeFollow up:2 day [id number] Other injuries of left eye and orbit, initial encounter Functional Status Description No Information Available Mental Status Description No Information Available Referrals Description No Information Available
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
[2019-06-10] MEDS ORDERED: Nicotine* 4MG (FRUIT FLAVOR) GUM PO PRN (02:50)
[2019-06-10 04:17] VITALS: BP 162/102
== END 2019-06-10 04:15 | disposition home or self-care (01) ==
LOC: ED 02:29
DX: T40.2X1A Poisoning by other opioids, accidental (unintentional), initial encounter (principal); Y92.009 Unspecified place in unspecified non-institutional (private) residence as the place of occurrence of the external cause; F17.210 Nicotine dependence, cigarettes, uncomplicated
CPT/HCPCS: 99282; A9270-GY